=== PATIENT | male | born 1955 | race Asian ===

== ENCOUNTER 2020-07-03 08:00 | Outpatient (CLI) | payer MEDICARE, OTHER | END 2020-07-03 23:59 | disposition home or self-care (01) | LOC: LAB.R 08:00 | PROVIDERS: ATTEND Nurse Practitioner | DX: R05 Cough (principal); Z20.822 Contact with and (suspected) exposure to COVID-19 | CPT/HCPCS: 87275; 87276; U0004 ==

== ENCOUNTER 2020-07-03 11:04 | Outpatient (CLI) | payer MEDICARE, OTHER ==
--- NOTE | 2020-07-03 11:34 | XRAY Report ---
PROCEDURE: Chest 2 View X-Ray INDICATIONS: ACUTE URI TECHNIQUE: 2 views of the chest. COMPARISON: None. FINDINGS: Surgical changes and devices: None. Lungs and pleura: There are bilateral patchy groundglass opacities, right greater than left, with a peripheral and basilar predominance. No pleural effusions or pneumothorax. Mediastinum: Mediastinal contours are normal. Heart size is normal. Bones and chest wall: No suspicious bony abnormalities. Soft tissues appear unremarkable. IMPRESSION: 1. Bilateral ground glass opacities likely represent pneumonia given clinical history. The appearance is suggestive of atypical viral pneumonia such as from Covid. Reviewed by: Aristeo Chavez MD on 07/03/2020 11:33 AM [facility] [place] Approved by: Aristeo Chavez MD on 07/03/2020 11:33 AM [facility] [place] Station ID: [id number]
== END 2020-07-03 23:59 | disposition home or self-care (01) ==
LOC: DI.N 11:04
PROVIDERS: ATTEND Nurse Practitioner
DX: J06.9 Acute upper respiratory infection, unspecified (principal); R91.8 Other nonspecific abnormal finding of lung field

== ENCOUNTER 2020-07-03 11:58 | Inpatient (IN) | payer MEDICARE, OTHER ==
[2020-07-03 13:15] LABS: BASOPHILS % (AUTO) 0.2 %; EOSINOPHILS # (AUTO) 0.1 10^3/uL (0.0-0.7); EOSINOPHILS % (AUTO) 0.6 %; LYMPHOCYTES # (AUTO) 1.3 10^3/uL (1.5-3.5); LYMPHOCYTES % (AUTO) 16.6 %; MEAN CORPUSCULAR HEMOGLOBIN 30.2 pg (27.0-31.0); MEAN CORPUSCULAR HGB CONC 32.8 g/dL (32.0-36.0); MEAN CORPUSCULAR VOLUME 92.3 fL (80.0-94.0); MEAN PLATELET VOLUME 10.1 fL (7.4-11.4); MONOCYTES # (AUTO) 0.7 10^3/uL (0.0-1.0); MONOCYTES % (AUTO) 8.2 %; PLT - PLATELET COUNT 309 10^3/uL (130-450); RED BLOOD COUNT 4.96 10^6/uL (4.70-6.10); RED CELL DISTRIBUTION WIDTH 11.9 % (12.0-15.0); WHITE BLOOD COUNT 8.1 x10^3/uL (4.8-10.8)
--- NOTE | 2020-07-03 13:19 | ED Physician Documentation ---
History of Present Illness - Stated complaint Stated Complaint: COUGH/FATIGUE - Chief complaint Chief Complaint: Resp - History obtained from History obtained from: Patient - History of Present Illness Timing: How many weeks ago (1) Pain level max: 0 Pain level now: 0 - Additonal information Additional information: Patient is a 65-year-old male who presents to the emergency department with a cough for the past week. He was seen at the walk-in clinic today and stated that they told him to come here for evaluation. He does not know why they told him to come here. He states that they told him he possibly had Covid or pneumonia. No antibiotics given. Review of Systems Ten Systems: 10 systems reviewed and negative Constitutional: denies: Fever, Chills Nose: denies: Rhinorrhea / runny nose, Congestion Cardiac: denies: Palpitations Respiratory: reports: Cough (brown sputum) GI: denies: Abdominal Pain, Nausea, Vomiting, Diarrhea : denies: Dysuria Skin: denies: Rash Musculoskeletal: denies: Neck pain, Back pain Neurologic: denies: Headache PD PAST MEDICAL HISTORY - Past Medical History Past Medical History: Yes Endocrine/Autoimmune: Type 2 diabetes - Past Surgical History Cardiovascular: Coronary stent - Present Medications Home Medications: Ambulatory Orders Medication Instructions Recorded Confirmed Atorvastatin [Lipitor] 40 mg PO DAILY 07/03/20 07/03/20 Insulin Glargine [Lantus Solostar] 40 units SQ DAILY 07/03/20 07/03/20 Lisinopril [Zestril] 20 mg PO DAILY 07/03/20 07/03/20 Pioglitazone HCl [Actos] 30 mg PO DAILY 07/03/20 07/03/20 SITagliptin [Januvia] 100 mg PO DAILY 07/03/20 07/03/20 metFORMIN [Glucophage] 850 mg PO BID 07/03/20 07/03/20 - Allergies Allergies/Adverse Reactions: Allergies Allergy/AdvReac Type Severity Reaction Status Date / Time No Known Drug Allergies Allergy Verified 07/03/20 12:09 - Social History Does the pt smoke?: No Smoking Status: Never smoker Does the pt drink ETOH?: No Does the pt have substance abuse?: No - Immunizations Immunizations are current?: Yes - POLST Patient has POLST: No PD ED PE NORMAL - Vitals Vital signs reviewed: Yes - General General: Alert and oriented X 3, No acute distress - HEENT HEENT: Moist mucous membranes - Neck Neck: Supple, no meningeal sign - Cardiac Cardiac: RRR, Strong equal pulses - Respiratory Respiratory: No respiratory distress, Other (crackles B) - Abdomen Abdomen: Soft, Non tender, Non distended - Derm Derm: Warm and dry, No rash - Neuro Neuro: Alert and oriented X 3 - Psych Psych: Normal mood, Normal affect Results - Vitals Vitals: Vital Signs - 24 hr 07/03/20 07/03/20 07/03/20 12:05 12:40 13:30 Temperature 36.0 C L Heart Rate 112 H 105 H 96 Respiratory 24 15 21 Rate Blood Pressure 139/80 H 134/71 H 137/83 H O2 Saturation 90 L 93 95 07/03/20 07/03/20 07/03/20 14:13 14:30 15:00 Temperature Heart Rate 94 93 96 Respiratory 24 29 H 27 H Rate Blood Pressure 135/77 H 137/72 H 121/74 O2 Saturation 96 96 95 07/03/20 07/03/20 07/03/20 15:32 16:37 17:00 Temperature Heart Rate 99 94 99 Respiratory 16 18 17 Rate Blood Pressure 130/71 135/77 H 131/73 H O2 Saturation 96 96 96 Oxygen O2 Source Nasal cannula Oxygen Flow Rate 2 - Labs Labs: Laboratory Tests 07/03/20 07/03/20 07/03/20 12:30 12:30 12:30 WBC 8.1 RBC 4.96 Hgb 15.0 Hct 45.8 MCV 92.3 MCH 30.2 MCHC 32.8 RDW 11.9 L Plt Count 309 MPV 10.1 Neut # (Auto) 6.0 Lymph # (Auto) 1.3 L Love # (Auto) 0.7 Eos # (Auto) 0.1 Baso # (Auto) 0.0 Absolute Nucleated RBC 0.00 Nucleated RBC % 0.0 Manual Slide Review Indicated WBC Morphology NORMAL APPEARANCE Platelet Estimate NORMAL (130-450,000) Platelet Morphology NORMAL APPEARANCE ESR D-Dimer > 1050.0 H Sodium 137 Potassium 3.8 Chloride 98 L Carbon Dioxide 23 Anion Gap 16.0 H BUN 11 Creatinine 1.1 Estimated GFR (MDRD) 67 L Glucose 171 H Calcium 8.6 Ferritin Total Bilirubin 0.7 AST 53 H ALT 58 Alkaline Phosphatase 81 C-Reactive Protein Total Protein 7.5 Albumin 2.9 L Globulin 4.6 H Albumin/Globulin Ratio 0.6 L Nasal Adenovirus (PCR) Nasal B. parapertussis DNA (PCR) Nasal Coronavir 229E PCR Nasal Coronavir HKU1 PCR Nasal Coronavir NL63 PCR Nasal Coronavir OC43 PCR Nasal Enterovir/Rhinovir PCR Nasal Influenza B PCR Nasal Influenza A PCR Nasal Parainfluen 1 PCR Nasal Parainfluen 2 PCR Nasal Parainfluen 3 PCR Nasal Parainfluen 4 PCR Nasal RSV (PCR) Nasal B.pertussis DNA PCR Nasal C.pneumoniae (PCR) Feliberto Human Metapneumo PCR Nasal M.pneumoniae (PCR) Nasal SARS-CoV-2 (PCR) 07/03/20 07/03/20 07/03/20 12:30 12:30 13:27 WBC RBC Hgb Hct MCV MCH MCHC RDW Plt Count MPV Neut # (Auto) Lymph # (Auto) Love # (Auto) Eos # (Auto) Baso # (Auto) Absolute Nucleated RBC Nucleated RBC % Manual Slide Review WBC Morphology Platelet Estimate Platelet Morphology ESR D-Dimer Sodium Potassium Chloride Carbon Dioxide Anion Gap BUN Creatinine Estimated GFR (MDRD) Glucose Calcium Ferritin 410.0 H Total Bilirubin AST ALT Alkaline Phosphatase C-Reactive Protein 10.2 H Total Protein Albumin Globulin Albumin/Globulin Ratio Nasal Adenovirus (PCR) NOT DETECTED Nasal B. parapertussis DNA (PCR) NOT DETECTED Nasal Coronavir 229E PCR NOT DETECTED Nasal Coronavir HKU1 PCR NOT DETECTED Nasal Coronavir NL63 PCR NOT DETECTED Nasal Coronavir OC43 PCR NOT DETECTED Nasal Enterovir/Rhinovir PCR NOT DETECTED Nasal Influenza B PCR NOT DETECTED Nasal Influenza A PCR NOT DETECTED Nasal Parainfluen 1 PCR NOT DETECTED Nasal Parainfluen 2 PCR NOT DETECTED Nasal Parainfluen 3 PCR NOT DETECTED Nasal Parainfluen 4 PCR NOT DETECTED Nasal RSV (PCR) NOT DETECTED Nasal B.pertussis DNA PCR NOT DETECTED Nasal C.pneumoniae (PCR) NOT DETECTED Feliberto Human Metapneumo PCR NOT DETECTED Nasal M.pneumoniae (PCR) NOT DETECTED Nasal SARS-CoV-2 (PCR) DETECTED A 07/03/20 14:30 WBC RBC Hgb Hct MCV MCH MCHC RDW Plt Count MPV Neut # (Auto) Lymph # (Auto) Love # (Auto) Eos # (Auto) Baso # (Auto) Absolute Nucleated RBC Nucleated RBC % Manual Slide Review WBC Morphology Platelet Estimate Platelet Morphology ESR 76 H D-Dimer Sodium Potassium Chloride Carbon Dioxide Anion Gap BUN Creatinine Estimated GFR (MDRD) Glucose Calcium Ferritin Total Bilirubin AST ALT Alkaline Phosphatase C-Reactive Protein Total Protein Albumin Globulin Albumin/Globulin Ratio Nasal Adenovirus (PCR) Nasal B. parapertussis DNA (PCR) Nasal Coronavir 229E PCR Nasal Coronavir HKU1 PCR Nasal Coronavir NL63 PCR Nasal Coronavir OC43 PCR Nasal Enterovir/Rhinovir PCR Nasal Influenza B PCR Nasal Influenza A PCR Nasal Parainfluen 1 PCR Nasal Parainfluen 2 PCR Nasal Parainfluen 3 PCR Nasal Parainfluen 4 PCR Nasal RSV (PCR) Nasal B.pertussis DNA PCR Nasal C.pneumoniae (PCR) Feliberto Human Metapneumo PCR Nasal M.pneumoniae (PCR) Nasal SARS-CoV-2 (PCR) PD MEDICAL DECISION MAKING - ED course Complexity details: reviewed results, re-evaluated patient, considered differential, d/w patient ED course: 65-year-old male presents to the emergency department with what appears to be Covid pneumonia. He is hypoxic with movement in bed, drops to 88%, drops down to 86 with ambulation. Will require supplemental oxygen. Given 6 mg of Decadron in the emergency department. We will admit for further care. Discussed with Dr. Booker, hospitalist who accepts. Chest xray: 1. Bilateral ground glass opacities likely represent pneumonia given clinical history. The appearance is suggestive of atypical viral pneumonia such as from Covid. Departure - Departure Disposition: 64 [facility] DC/Xfer Clinical Impression: COVID-19, Hypoxia, Pneumonia due to COVID-19 virus Condition: Stable Discharge Date/Time: 07/03/20 19:18
[2020-07-03 13:23] LABS: ALBUMIN 2.9 g/dL (3.2-5.5); ALBUMIN/GLOBULIN RATIO 0.6 (1.0-2.2); BILIRUBIN,TOTAL 0.7 mg/dL (0.2-1.0); CALCIUM 8.6 mg/dL (8.5-10.3); CREATININE 1.1 mg/dL (0.6-1.2); TOTAL PROTEIN 7.5 g/dL (6.7-8.2)
[2020-07-03 14:13] LABS: PLATELET ESTIMATE, MANUAL NORMAL (130-450,000) (NORMAL); PLATELET MORPHOLOGY NORMAL APPEARANCE (NORMAL)
[2020-07-03 15:21] LABS: C. PNEUMONIAE- RESP PCR PANEL NOT DETECTED
[2020-07-03] MEDS ORDERED: SODIUM CHLORIDE 0.9% 1,000 ML IV STA (15:36)
[2020-07-03] MEDS ORDERED: DEXAMETHASONE 10 MG/ML VIAL IVP STA (15:38)
[2020-07-03] MEDS ORDERED: SODIUM CHLORIDE FLUSH 0.9% 10 ML SYRINGE IVP PRN (17:16)
[2020-07-03] MEDS ORDERED: ONDANSETRON 4 MG/2 ML VIAL IVP PRN (17:16)
[2020-07-03] MEDS ORDERED: ACETAMINOPHEN 325 MG TABLET PO PRN (17:16)
--- NOTE | 2020-07-03 17:25 | HISTORY & PHYSICAL EXAMINATION ---
Chief Complaint - Chief Complaint Chief Complaint: shortness of breath History of Present Illness - Admitted From Admitted From:: ER - History Obtained From Records Reviewed: [facility] History obtained from: Pt Exam Limitations: no - History of Present Illness HPI Comment/Other: Patient is a 65-year-old male With a past medical history significant for hypertension, hyperlipidemia, diabetes, who presents to the emergency department with a cough and shortness of breath. pt report he had several weeks for shortness of breath with cough. But now Pt had obviously increased shortness of breath with exertion. He was seen at the walk-in clinic today and stated that he was told to come ER for further evaluation. He states that they told him he possibly had Covid pneumonia. 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 PCR test did show positive for COVID-19. Patient's O2 saturation is fine when he is in the rest. He is hypoxic with exertion in bed, drops to 88% sats, and drops more down to 86% with ambulation. Patient present significantly dry cough. pt require supplemental oxygen now. Patient denying fever, chest pain. Pt was Given 6 mg of Decadron in the emergency department. Given above medical condition, medical team was consulted for admission. Discussed the care goal with the patient, patient request full History - Past Medical History Endocrine/Autoimmune: reports: Type 2 diabetes MRSA Hx?: No - Past Surgical History Cardiovascular: reports: Coronary stent - Family & Social History Family History: Mother: , Father: Family History Comment/Other: Patient reported his father at age 62 from stroke. Her mother a From diabetic complication with stroke at the age 84. Social History Notes: Patient denies any history of cigarette smoking, alcohol or drug issue. He was moved from [facility] in May. - POLST Patient has POLST: No Meds/Allgy - Home Medications Home Medications: Ambulatory Orders Medication Instructions Recorded Confirmed Atorvastatin [Lipitor] 40 mg PO DAILY 07/03/20 07/03/20 Insulin Glargine [Lantus Solostar] 40 units SQ DAILY 07/03/20 07/03/20 Lisinopril [Zestril] 20 mg PO DAILY 07/03/20 07/03/20 Pioglitazone HCl [Actos] 30 mg PO DAILY 07/03/20 07/03/20 SITagliptin [Januvia] 100 mg PO DAILY 07/03/20 07/03/20 metFORMIN [Glucophage] 850 mg PO BID 07/03/20 07/03/20 - Allergies Allergies/Adverse Reactions: Allergies Allergy/AdvReac Type Severity Reaction Status Date / Time No Known Drug Allergies Allergy Verified 07/03/20 12:09 Review of Systems - Constitutional Constitutional: reports: Weakness. denies: Fever, Chills, Poor appetite, Diaphoresis - Eyes Eyes: denies: Pain, Blurred vision, Field loss, Vision loss - Ears, Nose & Throat Ears, Nose & Throat: denies: Ear pain, Vertigo, Nosebleeds, Bleeding gums - Cardiovascular Cariovascular: reports: Exertional dyspnea, Decr. exercise tolerance. denies: Irregular heart rate, Palpitations, Chest pain, Edema, Lightheadedness, Syncope - Respiratory Respiratory: reports: Cough, SOB with exertion. denies: Sputum production, Wheezing, Snoring, Hemoptysis, Orthopnea, SOB at rest - Gastrointestinal Gastrointestinal: denies: Abdominal pain, Constipation, Diarrhea, Rectal bleeding, Black stools, Bloody stools, Nausea, Vomiting - Genitourinary Genitourinary: denies: Dysuria, Urgency - Musculoskeletal Musculoskeletal: denies: Muscle pain, Muscle aches, Limited range of motion - Integumentary Integumentary: denies: Rash, Lesions, Lumps - Neurological Neurological: denies: General weakness, Focal weakness, Headache, Dizziness, Numbness, Memory problems, Pre-existing deficit, Abnormal gait, Seizures, Incoordination, Slurred speech - Psychiatric Psychiatric: denies: Depression, Anxiety - Endocrine Endocrine: denies: Polyuria, Polyphagia - Hematologic/Lymphatic Hematologic/Lymphatic: denies: Anemia, Petechiae, Blood clots Prior Level of Functionality: Patient is independent At home Exam - Vital Signs Vital Signs: Vital Signs x48h Temp Pulse Resp BP Pulse Ox 07/03/20 17:00 99 17 131/73 H 96 07/03/20 16:37 94 18 135/77 H 96 07/03/20 15:32 99 16 130/71 96 07/03/20 15:00 96 27 H 121/74 95 07/03/20 14:30 93 29 H 137/72 H 96 07/03/20 14:13 94 24 135/77 H 96 07/03/20 13:30 96 21 137/83 H 95 07/03/20 12:40 105 H 15 134/71 H 93 07/03/20 12:05 36.0 C L 112 H 24 139/80 H 90 L - Physical Exam General Appearance: positive: No acute distress, Alert. negative: Lethargic Eyes Bilateral: positive: Normal inspection, PERRL, No lid inflammation ENT: positive: ENT inspection nml, No signs of dehydration. negative: Purulent nasal drainage Neck: positive: Nml inspection, Trachea midline. negative: Thyromegaly, Tracheal deviation Respiratory: positive: Chest non-tender, No respiratory distress, Rhonchi. nega tive: Wheezes, Rales Cardiovascular: positive: Regular rate & rhythm, No murmur. negative: Tachycardia, Bradycardia, Systolic murmur, Diastolic murmur Peripheral Pulses: positive: 2+ Abdomen: positive: Non-tender, Nml bowel sounds. negative: Tenderness, Guarding, Rebound Back: positive: Nml inspection Skin: positive: Color nml, Warm, Dry. negative: Cyanosis, Pallor Extremities: positive: Non-tender, Full ROM, Nml appearance. negative: Calf te nderness Neurologic/Psychiatric: positive: Oriented x3, Motor nml, Sensation nml, Mood/affect nml. negative: Weakness, Sensory loss, Facial droop, Slurred/abnml speech, Depressed mood/affect Sepsis Event Note (H) - Evaluation Current Stage of Sepsis: Ruled out Conclusion/Plan - Problem List (1) Pneumonia due to COVID-19 virus Conclusion/Plan: Patient presents with cough, short of breathing on exertion, Chest x-ray will show Atopic ground glass pneumonia suggestion virus pneumonia, PCR test show COVID-19. Consult with pharmacy, will give patient Remdisvir, continue Decadron, will give patient Lovenox For DVT prophylaxis. Supplemental oxygen As needed. Intravenous IV fluids. Continue vital signs and laboratory supervisor. (2) Hypoxia Conclusion/Plan: Patient show O2 sat dropped to 86% in exertion. Patient COVID-19 positive. We will supplement oxygen for patient, continue treat COVID-19. Continue vital signs monitor (3) Diabetes Conclusion/Plan: Patient has history diabetes. We will start Sliding-scale, check glucose, start hypoglycemia Protocol, Check A1c (4) HTN (hypertension) Conclusion/Plan: Patient blood pressure is stable now, we will resume patient home blood pressure medication after confirmed (5) HLD (hyperlipidemia) Conclusion/Plan: Will resume patient home hyperlipidemia medication After confirmed Per pharmacy - Lab Results Fish Bones: 07/03/20 12:30 07/03/20 12:30 Core Measures - Anticipated LOS I expect patient to be DC'd or transferred within 96 hours.: Yes - DVT/VTE - Prophylaxis VTE/DVT Device ordered at admit?: Yes VTE/DVT Prophylaxis med ordered at admit?: Yes
[2020-07-03] MEDS ORDERED: REMDESIVIR 100MG VIAL 200 MG in SODIUM CHLORIDE 0.9% 250 ML IV ONE (18:00)
[2020-07-03] MEDS: SODIUM CHLORIDE 0.9% 1,000 ML IV SCH (19:40)
[2020-07-03] MEDS ORDERED: INSULIN GLARGINE 300 UNIT/3 ML PEN SUBQ SCH (21:00)
[2020-07-03] MEDS: ATORVASTATIN 40 MG TABLET PO SCH (22:59)
[2020-07-03] MEDS: INSULIN ASPART 300 UNIT/3 ML PEN SUBQ SCH (23:00)
[2020-07-04] MEDS: SODIUM CHLORIDE FLUSH 0.9% 10 ML SYRINGE IVP SCH ×3 (01:05→16:48)
[2020-07-04] MEDS: SODIUM CHLORIDE 0.9% 1,000 ML IV SCH (01:34)
[2020-07-04 05:21] LABS: BASOPHILS % (AUTO) 0.2 %; HGB - HEMOGLOBIN 13.3 g/dL (14.0-18.0); LYMPHOCYTES % (AUTO) 21.6 %; MEAN CORPUSCULAR HEMOGLOBIN 30.6 pg (27.0-31.0); MEAN CORPUSCULAR HGB CONC 32.4 g/dL (32.0-36.0); MEAN CORPUSCULAR VOLUME 94.5 fL (80.0-94.0); MEAN PLATELET VOLUME 10.2 fL (7.4-11.4); MONOCYTES % (AUTO) 7.3 %; NEUTROPHILS % (AUTO) 70.5 %; PLT - PLATELET COUNT 255 10^3/uL (130-450); RED BLOOD COUNT 4.35 10^6/uL (4.70-6.10); RED CELL DISTRIBUTION WIDTH 11.7 % (12.0-15.0); WHITE BLOOD COUNT 4.8 x10^3/uL (4.8-10.8)
[2020-07-04 05:29] LABS: ABNORMAL LYMPHS % (MANUAL) 0 %
[2020-07-04 05:43] LABS: CALCIUM 7.7 mg/dL (8.5-10.3); CREATININE 0.9 mg/dL (0.6-1.2); CRP - C-REACTIVE PROTEIN 10.9 mg/dL (0-1.0)
[2020-07-04] MEDS: PANTOPRAZOLE 40 MG TABLET PO SCH (06:39)
[2020-07-04 06:59] LABS: BAND NEUTROPHILS % (MANUAL) 1 %; LYMPHOCYTES % (MANUAL) 21 %; MONOCYTES # (MANUAL) 0.6 10^3/uL (0.0-1.0)
[2020-07-04 07:00] LABS: DIFFERENTIAL COMMENT MANUAL DIFFERENTIAL; PLATELET ESTIMATE, MANUAL NORMAL (130-450,000) (NORMAL); PLATELET MORPHOLOGY NORMAL APPEARANCE (NORMAL); RBC MORPHOLOGY (MULTIPLE) NORMAL APPEARANCE (NORMAL)
[2020-07-04] MEDS ORDERED: DEXAMETHASONE 10 MG/ML VIAL IVP SCH (09:00)
[2020-07-04] MEDS: INSULIN ASPART 300 UNIT/3 ML PEN SUBQ SCH ×4 (09:04→20:43)
[2020-07-04] MEDS: ENOXAPARIN 40 MG/0.4 ML SYRINGE SUBQ SCH (09:07)
[2020-07-04] MEDS: DEXAMETHASONE 10 MG/ML VIAL IVP SCH (09:09)
[2020-07-04] MEDS: REMDESIVIR 100MG VIAL 100 MG in SODIUM CHLORIDE 0.9% 100ML 100 ML IV SCH (09:13)
[2020-07-04] MEDS: BENZOCAINE/MENTHOL LOZENGE MM PRN ×2 (10:03→12:10)
[2020-07-04] MEDS: PHENOL THROAT SPRAY 177 ML MM PRN (10:03)
--- NOTE | 2020-07-04 10:57 | PROVIDER PROGRESS NOTE ---
Assessment/Plan - Problem List (1) Pneumonia due to COVID-19 virus Assessment/Plan: Patient has a persistent dry cough but is maintaining his oxygenation on 1 L of oxygen via nasal cannula. We will continue remdesivir. Today is day 2 . Continue Decadron 6 mg IV daily Albuterol inhaler 2 puffs every 4 hours as needed. Lovenox 40 mg subcu every afternoon for DVT prophylaxis. (2) Hypoxia Assessment/Plan: Secondary to COVID-19 infection/pneumonia. Patient has a persistent dry cough but is maintaining his oxygenation above 94% on 1 L of oxygen via nasal cannula. We will continue remdesivir. Today is day 2 5. Continue Decadron 6 mg IV daily Albuterol inhaler 2 puffs every 4 hours as needed. (3) Diabetes Qualifiers: Diabetes mellitus type: type 2 Assessment/Plan: Carb controlled diet. Patient's Actos, Januvia and Metformin held. Continue Lantus 40 units subcu daily. Accu-Cheks before every meal and at bedtime. Sliding scale insulin. Hemoglobin A1c 7.5. (4) HLD (hyperlipidemia) Assessment/Plan: On atorvastatin 40 mg p.o. every afternoon. (5) HTN (hypertension) Assessment/Plan: Currently normotensive. On lisinopril 20 mg p.o. daily. - Current Meds Current Meds: Current Medications Generic Name Dose Route Start Last Admin Trade Name Freq PRN Reason Stop Dose Admin Atorvastatin Calcium 40 mg 07/03/20 21:00 07/03/20 22:59 Atorvastatin 40 Mg Tablet PO 40 mg QPM CHRISTIE Administration Dexamethasone 6 mg 07/04/20 09:00 07/04/20 09:09 Dexamethasone 10 Mg/Ml Vial IVP 07/08/20 08:59 6 mg DAILY CHRISTIE Administration Enoxaparin Sodium 40 mg 07/04/20 09:00 07/04/20 09:07 Enoxaparin 40 Mg/0.4 Ml Syringe SUBQ 40 mg DAILY CHRISTIE Administration Sodium Chloride 1,000 mls @ 100 mls/hr 07/03/20 18:00 07/04/20 01:34 Normal Saline 0.9% IV 07/04/20 13:59 100 mls/hr .Q10H CHRISTIE Administration Remdesivir 100 mg/ Sodium 100 mls @ 200 mls/hr 07/04/20 09:00 07/04/20 09:13 Chloride IV 07/07/20 09:29 200 mls/hr DAILY CHRISTIE Administration Insulin Aspart 1 - 9 unit 07/03/20 21:00 07/04/20 09:04 Insulin Aspart 300 Unit/3 Ml Pen SUBQ 1 unit 0800,1200,1700,2100 CHRISTIE Administration Protocol Insulin Glargine 15 unit 07/03/20 21:00 07/03/20 22:59 Insulin Glargine 300 Unit/3 Ml Pen SUBQ 15 unit QPM CHRISTIE Administration Pantoprazole Sodium 40 mg 07/04/20 07:00 07/04/20 06:39 Pantoprazole 40 Mg Tablet PO 40 mg QDAC CHRISTIE Administration Phenol/Menthol 2 sprays 07/04/20 09:40 07/04/20 10:03 Phenol Throat [place] 177 Ml MM 2 sprays Q2HR PRN Administration Throat Pain Sodium Chloride 10 ml 07/04/20 01:00 07/04/20 09:14 Sodium Chloride Flush 0.9% 10 Ml Syringe IVP Not Given 0100,0900,1700 [facility], [facility]–1983 Throat Lozenges 1 lozenge 07/04/20 09:40 07/04/20 10:03 Benzocaine/Menthol Lozenge MM 1 lozenge Q2HR PRN Administration Throat pain - Lab Result Fish Bone Diagrams: 07/04/20 04:16 07/04/20 04:16 Subjective - Subjective Patient Reports: Other (Patient was resting comfortably at time of exam. He had a persistent dry cough during the course of the visit. He denied feeling dyspneic. He is on 1 L of oxygen via nasal cannula. He denied chest pain, abdominal pain, fever or chills.) Objective Vital Signs: Vital Signs - 24 hr 07/03/20 07/03/20 07/03/20 12:05 12:40 13:30 Temperature 36.0 C L Heart Rate 112 H 105 H 96 Heart Rate [ Brachial] Respiratory 24 15 21 Rate Blood Pressure 139/80 H 134/71 H 137/83 H Blood Pressure [Left Brachial artery] Blood Pressure [Right Brachial artery] O2 Saturation 90 L 93 95 07/03/20 07/03/20 07/03/20 14:13 14:30 15:00 Temperature Heart Rate 94 93 96 Heart Rate [ Brachial] Respiratory 24 29 H 27 H Rate Blood Pressure 135/77 H 137/72 H 121/74 Blood Pressure [Left Brachial artery] Blood Pressure [Right Brachial artery] O2 Saturation 96 96 95 07/03/20 07/03/20 07/03/20 15:32 16:37 17:00 Temperature Heart Rate 99 94 99 Heart Rate [ Brachial] Respiratory 16 18 17 Rate Blood Pressure 130/71 135/77 H 131/73 H Blood Pressure [Left Brachial artery] Blood Pressure [Right Brachial artery] O2 Saturation 96 96 96 07/03/20 07/03/20 07/03/20 17:30 18:00 19:00 Temperature 37.5 C Heart Rate 76 75 71 Heart Rate [ Brachial] Respiratory 24 26 H 20 Rate Blood Pressure 144/74 H 145/76 H 109/73 Blood Pressure [Left Brachial artery] Blood Pressure [Right Brachial artery] O2 Saturation 97 96 97 07/03/20 07/04/20 07/04/20 19:50 00:13 05:00 Temperature 37.1 C 36.8 C 36.7 C Heart Rate Heart Rate [ 75 78 29 L Brachial] Respiratory 22 20 18 Rate Blood Pressure Blood Pressure 141/72 H 126/65 [Left Brachial artery] Blood Pressure 127/69 [Right Brachial artery] O2 Saturation 98 95 95 07/04/20 07:54 Temperature 36.7 C Heart Rate Heart Rate [ 60 Brachial] Respiratory 18 Rate Blood Pressure Blood Pressure 117/68 [Left Brachial artery] Blood Pressure [Right Brachial artery] O2 Saturation 96 Oxygen O2 Source Nasal cannula Oxygen Flow Rate 2 I&O (Last 24 Hrs): Intake and Output Totals x24h 07/02/20 07/03/20 07/04/20 23:59 23:59 23:59 Intake Total 935 478.333 Output Total 600 Balance 935 -121.667 General: Alert, Oriented x3, Mild distress HEENT: Atraumatic, PERRLA, EOMI Neck: Supple, No JVD Neuro: Alert, Oriented Times 3 Cardiovascular: Regular rate, Normal S1, Normal S2 Respiratory: Other (Moderate crackles heard on the right side of her lungs.) Abdomen: Normal bowel sounds, Soft, No tenderness Extremities: No clubbing, No cyanosis, No edema Skin: No rashes - Results Results: Laboratory Results WBC 4.8 x10^3/uL (4.8-10.8) 07/04/20 04:16 RBC 4.35 10^6/uL (4.70-6.10) L 07/04/20 04:16 Hgb 13.3 g/dL (14.0-18.0) L 07/04/20 04:16 Hct 41.1 % (42.0-52.0) L 07/04/20 04:16 MCV 94.5 fL (80.0-94.0) H 07/04/20 04:16 MCH 30.6 pg (27.0-31.0) 07/04/20 04:16 MCHC 32.4 g/dL (32.0-36.0) 07/04/20 04:16 RDW 11.7 % (12.0-15.0) L 07/04/20 04:16 Plt Count 255 10^3/uL (130-450) 07/04/20 04:16 MPV 10.2 fL (7.4-11.4) 07/04/20 04:16 Neut # (Auto) Not Reportable 07/04/20 04:16 Lymph # (Auto) Not Reportable 07/04/20 04:16 [place] # (Auto) Not Reportable 07/04/20 04:16 Eos # (Auto) Not Reportable 07/04/20 04:16 Baso # (Auto) Not Reportable 07/04/20 04:16 Absolute Nucleated RBC Not Reportable 07/04/20 04:16 Total Counted 100 07/04/20 04:16 Band Neuts % (Manual) 1 % (0-10) 07/04/20 04:16 Abnorm Lymph % (Manual) 0 % 07/04/20 04:16 Nucleated RBC % Not Reportable 07/04/20 04:16 Neutrophils # (Manual) 3.2 10^3/uL (1.5-6.6) 07/04/20 04:16 Lymphocytes # (Manual) 1.0 10^3/uL (1.5-3.5) L 07/04/20 04:16 Monocytes # (Manual) 0.6 10^3/uL (0.0-1.0) 07/04/20 04:16 Eosinophils # (Manual) 0.0 10^3/uL (0-0.7) 07/04/20 04:16 Basophils # (Manual) 0.0 10^3/uL (0-0.1) 07/04/20 04:16 Differential Comment MANUAL DIFFERENTIAL 07/04/20 04:16 Manual Slide Review Indicated 07/03/20 12:30 WBC Morphology NORMAL APPEARANCE (NORMAL) 07/04/20 04:16 Platelet Estimate NORMAL (130-450,000) (NORMAL) 07/04/20 04:16 Platelet Morphology NORMAL APPEARANCE (NORMAL) 07/04/20 04:16 RBC Morph Micro Appear NORMAL APPEARANCE (NORMAL) 07/04/20 04:16 ESR 76 mm/Hr (0-20) H 07/03/20 14:30 D-Dimer > 1050.0 ng/mL (200.0-255.0) H 07/03/20 12:30 Sodium 138 mmol/L (135-145) 07/04/20 04:16 Potassium 4.6 mmol/L (3.5-5.0) 07/04/20 04:16 Chloride 106 mmol/L (101-111) 07/04/20 04:16 Carbon Dioxide 23 mmol/L (21-32) 07/04/20 04:16 Anion Gap 9.0 (6-13) 07/04/20 04:16 BUN 14 mg/dL (6-20) 07/04/20 04:16 Creatinine 0.9 mg/dL (0.6-1.2) 07/04/20 04:16 Estimated GFR (MDRD) 84 (>89) L 07/04/20 04:16 Glucose 185 mg/dL (70-100) H 07/04/20 04:16 Calcium 7.7 mg/dL (8.5-10.3) L 07/04/20 04:16 Ferritin 410.0 ng/mL (23.9-336.2) H 07/03/20 12:30 Total Bilirubin 0.7 mg/dL (0.2-1.0) 07/03/20 12:30 AST 53 IU/L (10-42) H 07/03/20 12:30 ALT 58 IU/L (10-60) 07/03/20 12:30 Alkaline Phosphatase 81 IU/L (42-121) 07/03/20 12:30 C-Reactive Protein 10.9 mg/dL (0-1.0) H 07/04/20 04:16 Total Protein 7.5 g/dL (6.7-8.2) 07/03/20 12:30 Albumin 2.9 g/dL (3.2-5.5) L 07/03/20 12:30 Globulin 4.6 g/dL (2.1-4.2) H 07/03/20 12:30 Albumin/Globulin Ratio 0.6 (1.0-2.2) L 07/03/20 12:30 Nasal Adenovirus (PCR) NOT DETECTED 07/03/20 13:27 Nasal B. parapertussis DNA (PCR) NOT DETECTED 07/03/20 13:27 Nasal Coronavir 229E PCR NOT DETECTED 07/03/20 13:27 Nasal Coronavir HKU1 PCR NOT DETECTED 07/03/20 13:27 Nasal Coronavir NL63 PCR NOT DETECTED 07/03/20 13:27 Nasal Coronavir OC43 PCR NOT DETECTED 07/03/20 13:27 Nasal Enterovir/Rhinovir PCR NOT DETECTED 07/03/20 13:27 Nasal Influenza B PCR NOT DETECTED 07/03/20 13:27 Nasal Influenza A PCR NOT DETECTED 07/03/20 13:27 Nasal Parainfluen 1 PCR NOT DETECTED 07/03/20 13:27 Nasal Parainfluen 2 PCR NOT DETECTED 07/03/20 13:27 Nasal Parainfluen 3 PCR NOT DETECTED 07/03/20 13:27 Nasal Parainfluen 4 PCR NOT DETECTED 07/03/20 13:27 Nasal RSV (PCR) NOT DETECTED 07/03/20 13:27 Nasal B.pertussis DNA PCR NOT DETECTED 07/03/20 13:27 Nasal C.pneumoniae (PCR) NOT DETECTED 07/03/20 13:27 Feliberto Human Metapneumo PCR NOT DETECTED 07/03/20 13:27 Nasal M.pneumoniae (PCR) NOT DETECTED 07/03/20 13:27 Nasal SARS-CoV-2 (PCR) DETECTED A 07/03/20 13:27 Sepsis Event Note (H) - Evaluation Current Stage of Sepsis: Ruled out
[2020-07-04 11:46] LABS: HEMOGLOBIN A1c% 7.5 % (4.27-6.07)
--- NOTE | 2020-07-04 12:21 | PHARMACY PROGRESS NOTE ---
- Best Possible Medication History Admit Date and Time: 07/03/20 1716 Processed by: Nursing Medication History completed: Yes As the person ultimately responsible for medication therapy, providers are able to order a medication from an existing home medication list in [facility] via the "Reconcile Routine" prior to Confirmation of that medication by supportability engineer. Such practice is discouraged except when the physician, in their clinical judgment, deems that a medical need exists for a medication without regard to previous use.
[2020-07-04] MEDS ORDERED: ALBUTEROL 1 PUFF INH PRN (13:09)
[2020-07-04] MEDS: guaiFENesin 600 MG TABLET PO SCH ×2 (13:20→20:45)
[2020-07-04] MEDS: INSULIN GLARGINE 300 UNIT/3 ML PEN SUBQ SCH (20:44)
[2020-07-04] MEDS: ATORVASTATIN 40 MG TABLET PO SCH (20:45)
[2020-07-05] MEDS: SODIUM CHLORIDE FLUSH 0.9% 10 ML SYRINGE IVP SCH ×3 (01:19→16:46)
[2020-07-05 05:31] LABS: BASOPHILS % (AUTO) 0.2 %; HGB - HEMOGLOBIN 12.8 g/dL (14.0-18.0); LYMPHOCYTES # (AUTO) 1.8 10^3/uL (1.5-3.5); LYMPHOCYTES % (AUTO) 17.8 %; MEAN CORPUSCULAR HEMOGLOBIN 30.3 pg (27.0-31.0); MEAN CORPUSCULAR HGB CONC 32.2 g/dL (32.0-36.0); MEAN CORPUSCULAR VOLUME 94.1 fL (80.0-94.0); MEAN PLATELET VOLUME 10.3 fL (7.4-11.4); MONOCYTES # (AUTO) 0.8 10^3/uL (0.0-1.0); MONOCYTES % (AUTO) 8.2 %; NEUTROPHILS # (AUTO) 7.5 10^3/uL (1.5-6.6); NEUTROPHILS % (AUTO) 73.1 %; PLT - PLATELET COUNT 294 10^3/uL (130-450); RED BLOOD COUNT 4.23 10^6/uL (4.70-6.10); RED CELL DISTRIBUTION WIDTH 11.7 % (12.0-15.0); WHITE BLOOD COUNT 10.2 x10^3/uL (4.8-10.8)
[2020-07-05 05:50] LABS: CALCIUM 8.5 mg/dL (8.5-10.3); CRP - C-REACTIVE PROTEIN 5.8 mg/dL (0-1.0)
[2020-07-05] MEDS: PANTOPRAZOLE 40 MG TABLET PO SCH (06:55)
[2020-07-05] MEDS: INSULIN ASPART 300 UNIT/3 ML PEN SUBQ SCH ×4 (07:28→21:18)
[2020-07-05] MEDS: DEXAMETHASONE 10 MG/ML VIAL IVP SCH (09:32)
[2020-07-05] MEDS: ENOXAPARIN 40 MG/0.4 ML SYRINGE SUBQ SCH (09:32)
[2020-07-05] MEDS: lisinopriL 20 MG TABLET PO SCH (09:35)
[2020-07-05] MEDS: guaiFENesin 600 MG TABLET PO SCH (09:35)
[2020-07-05] MEDS: REMDESIVIR 100MG VIAL 100 MG in SODIUM CHLORIDE 0.9% 100ML 100 ML IV SCH (09:36)
--- NOTE | 2020-07-05 11:58 | PROVIDER PROGRESS NOTE ---
Assessment/Plan - Problem List (1) Pneumonia due to COVID-19 virus Assessment/Plan: Patient has a persistent dry cough but is maintaining his oxygenation on 1 L of oxygen via nasal cannula. We will continue remdesivir. Today is day 3 of 5. Continue Decadron 6 mg IV daily Albuterol inhaler 2 puffs every 4 hours as needed. Lovenox 40 mg subcu every afternoon for DVT prophylaxis. (2) Hypoxia Assessment/Plan: Secondary to COVID-19 infection/pneumonia. Patient has a persistent dry cough but is maintaining his oxygenation above 94% on 1 L of oxygen via nasal cannula. We will continue remdesivir. Today is day 3 of 5. Continue Decadron 6 mg IV daily Albuterol inhaler 2 puffs every 4 hours as needed. (3) Diabetes Qualifiers: Diabetes mellitus type: type 2 Assessment/Plan: Carb controlled diet. Patient's Actos, Januvia and Metformin held. Continue Lantus 40 units subcu daily. Accu-Cheks before every meal and at bedtime. Sliding scale insulin. Hemoglobin A1c 7.5. (4) HLD (hyperlipidemia) Assessment/Plan: On atorvastatin 40 mg p.o. every afternoon. (5) HTN (hypertension) Assessment/Plan: Currently normotensive. On lisinopril 20 mg p.o. daily. - Current Meds Current Meds: Current Medications Generic Name Dose Route Start Last Admin Trade Name Freq PRN Reason Stop Dose Admin Albuterol 2 puffs 07/04/20 13:09 07/04/20 13:52 Albuterol 1 Puff INH 2 puffs Q4H PRN Administration Dyspnea Atorvastatin Calcium 40 mg 07/03/20 21:00 07/04/20 20:45 Atorvastatin 40 Mg Tablet PO 40 mg QPM CHRISTIE Administration Dexamethasone 6 mg 07/04/20 09:00 07/05/20 09:32 Dexamethasone 10 Mg/Ml Vial IVP 07/08/20 08:59 6 mg DAILY CHRISTIE Administration Enoxaparin Sodium 40 mg 07/04/20 09:00 07/05/20 09:32 Enoxaparin 40 Mg/0.4 Ml Syringe SUBQ 40 mg DAILY CHRISTIE Administration Guaifenesin 600 mg 07/04/20 13:30 07/05/20 09:35 Guaifenesin 600 Mg Tablet PO 600 mg BID CHRISTIE Administration Remdesivir 100 mg/ Sodium 100 mls @ 200 mls/hr 07/04/20 09:00 07/05/20 10:10 Chloride IV 07/07/20 09:29 Infused DAILY [facility] Infusion Insulin Aspart 1 - 9 unit 07/03/20 21:00 07/05/20 07:28 Insulin Aspart 300 Unit/3 Ml Pen SUBQ Not Given 0800,1200,1700,2100 [facility] Protocol Insulin Glargine 40 unit 07/04/20 21:00 07/04/20 20:44 Insulin Glargine 300 Unit/3 Ml Pen SUBQ 40 unit QPM CHRISTIE Administration Lisinopril 20 mg 07/05/20 09:00 07/05/20 09:35 Lisinopril 20 Mg Tablet PO 20 mg DAILY CHRISTIE Administration Pantoprazole Sodium 40 mg 07/04/20 07:00 07/05/20 06:55 Pantoprazole 40 Mg Tablet PO 40 mg QDAC CHRISTIE Administration Phenol/Menthol 2 sprays 07/04/20 09:40 07/04/20 10:03 Phenol Throat [place] 177 Ml MM 2 sprays Q2HR PRN Administration Throat Pain Sodium Chloride 10 ml 07/04/20 01:00 07/05/20 10:19 Sodium Chloride Flush 0.9% 10 Ml Syringe IVP 10 ml 0100,0900,1700 CHRISTIE Administration Throat Lozenges 1 lozenge 07/04/20 09:40 07/04/20 12:10 Benzocaine/Menthol Lozenge MM 1 lozenge Q2HR PRN Administration Throat pain - Lab Result Fish Bone Diagrams: 07/06/20 05:53 07/06/20 05:53 - Additional Planning My Orders: My Active Orders 07/04/20 13:09 Mdi: Albuterol 2 puffs INH Q4H PRN 07/04/20 13:10 Nebulizer/MDI Tx. [RC] .Q4PRN Resp Teach Nebulizer/MDI [RC] .ONCE 07/04/20 13:30 guaiFENesin [Mucinex] 600 mg PO BID 07/04/20 21:00 Insulin Glargine [Lantus Solostar] 40 unit SUBQ QPM 07/05/20 09:00 lisinopriL [Zestril] 20 mg PO DAILY Subjective - Subjective Patient Reports: Other (Patient is resting comfortably. His dry nonproductive cough persist but has decreased in intensity. He denies any other complaints.) Objective Vital Signs: Vital Signs - 24 hr 07/04/20 07/04/20 07/04/20 13:40 13:55 16:47 Temperature 36.4 C L 37.1 C Heart Rate 74 Heart Rate [ 102 H 86 Brachial] Respiratory 18 18 18 Rate Blood Pressure 103/58 L [Left Brachial artery] Blood Pressure 119/62 [Right Brachial artery] O2 Saturation 92 94 07/04/20 07/05/20 07/05/20 20:40 00:41 05:00 Temperature 36.6 C 36.9 C 36.6 C Heart Rate Heart Rate [ 65 75 58 L Brachial] Respiratory 18 16 Rate Blood Pressure 117/64 [Left Brachial artery] Blood Pressure 123/58 L 112/62 [Right Brachial artery] O2 Saturation 1 L 94 97 07/05/20 07:27 Temperature 37.1 C Heart Rate Heart Rate [ 54 L Brachial] Respiratory 15 Rate Blood Pressure [Left Brachial artery] Blood Pressure 112/60 [Right Brachial artery] O2 Saturation 93 Oxygen O2 Source Nasal cannula Oxygen Flow Rate 2 I&O (Last 24 Hrs): Intake and Output Totals x24h 07/03/20 07/04/20 07/05/20 23:59 23:59 23:59 Intake Total 935 3218.333 100 Output Total 1375 Balance 935 1843.333 100 General: Alert, Oriented x3, Mild distress HEENT: PERRLA, EOMI Neck: Supple, No JVD Neuro: Alert, Oriented Times 3 Cardiovascular: Regular rate, Normal S1, Normal S2 Respiratory: Other (Moderate amount of crackles heard in lungs bilaterally. Right greater than left.) Abdomen: Normal bowel sounds, Soft Extremities: No clubbing, No edema - Results Results: Laboratory Results WBC 10.2 x10^3/uL (4.8-10.8) 07/05/20 04:19 RBC 4.23 10^6/uL (4.70-6.10) L 07/05/20 04:19 Hgb 12.8 g/dL (14.0-18.0) L 07/05/20 04:19 Hct 39.8 % (42.0-52.0) L 07/05/20 04:19 MCV 94.1 fL (80.0-94.0) H 07/05/20 04:19 MCH 30.3 pg (27.0-31.0) 07/05/20 04:19 MCHC 32.2 g/dL (32.0-36.0) 07/05/20 04:19 RDW 11.7 % (12.0-15.0) L 07/05/20 04:19 Plt Count 294 10^3/uL (130-450) 07/05/20 04:19 MPV 10.3 fL (7.4-11.4) 07/05/20 04:19 Neut # (Auto) 7.5 10^3/uL (1.5-6.6) H 07/05/20 04:19 Lymph # (Auto) 1.8 10^3/uL (1.5-3.5) 07/05/20 04:19 [place] # (Auto) 0.8 10^3/uL (0.0-1.0) 07/05/20 04:19 Eos # (Auto) 0.0 10^3/uL (0.0-0.7) 07/05/20 04:19 Baso # (Auto) 0.0 10^3/uL (0.0-0.1) 07/05/20 04:19 Absolute Nucleated RBC 0.00 x10^3/uL 07/05/20 04:19 Total Counted 100 07/04/20 04:16 Band Neuts % (Manual) 1 % (0-10) 07/04/20 04:16 Abnorm Lymph % (Manual) 0 % 07/04/20 04:16 Nucleated RBC % 0.0 /100WBC 07/05/20 04:19 Neutrophils # (Manual) 3.2 10^3/uL (1.5-6.6) 07/04/20 04:16 Lymphocytes # (Manual) 1.0 10^3/uL (1.5-3.5) L 07/04/20 04:16 Monocytes # (Manual) 0.6 10^3/uL (0.0-1.0) 07/04/20 04:16 Eosinophils # (Manual) 0.0 10^3/uL (0-0.7) 07/04/20 04:16 Basophils # (Manual) 0.0 10^3/uL (0-0.1) 07/04/20 04:16 Differential Comment MANUAL DIFFERENTIAL 07/04/20 04:16 Manual Slide Review Indicated 07/03/20 12:30 WBC Morphology NORMAL APPEARANCE (NORMAL) 07/04/20 04:16 Platelet Estimate NORMAL (130-450,000) (NORMAL) 07/04/20 04:16 Platelet Morphology NORMAL APPEARANCE (NORMAL) 07/04/20 04:16 RBC Morph Micro Appear NORMAL APPEARANCE (NORMAL) 07/04/20 04:16 ESR 76 mm/Hr (0-20) H 07/03/20 14:30 D-Dimer > 1050.0 ng/mL (200.0-255.0) H 07/03/20 12:30 Sodium 140 mmol/L (135-145) 07/05/20 04:19 Potassium 5.1 mmol/L (3.5-5.0) H 07/05/20 04:19 Chloride 107 mmol/L (101-111) 07/05/20 04:19 Carbon Dioxide 21 mmol/L (21-32) 07/05/20 04:19 Anion Gap 12.0 (6-13) 07/05/20 04:19 BUN 22 mg/dL (6-20) H 07/05/20 04:19 Creatinine 1.0 mg/dL (0.6-1.2) 07/05/20 04:19 Estimated GFR (MDRD) 75 (>89) L 07/05/20 04:19 Glucose 145 mg/dL (70-100) H 07/05/20 04:19 POC Whole Bld Glucose 224 mg/dL (70 - 100) H 07/05/20 11:45 Estimat Average Glucose 169 mg/dL (70-100) H 07/04/20 04:16 Hemoglobin A1c % 7.5 % (4.27-6.07) H 07/04/20 04:16 Calcium 8.5 mg/dL (8.5-10.3) 07/05/20 04:19 Ferritin 410.0 ng/mL (23.9-336.2) H 07/03/20 12:30 Total Bilirubin 0.7 mg/dL (0.2-1.0) 07/03/20 12:30 AST 53 IU/L (10-42) H 07/03/20 12:30 ALT 58 IU/L (10-60) 07/03/20 12:30 Alkaline Phosphatase 81 IU/L (42-121) 07/03/20 12:30 C-Reactive Protein 5.8 mg/dL (0-1.0) H 07/05/20 04:19 Total Protein 7.5 g/dL (6.7-8.2) 07/03/20 12:30 Albumin 2.9 g/dL (3.2-5.5) L 07/03/20 12:30 Globulin 4.6 g/dL (2.1-4.2) H 07/03/20 12:30 Albumin/Globulin Ratio 0.6 (1.0-2.2) L 07/03/20 12:30 Nasal Adenovirus (PCR) NOT DETECTED 07/03/20 13:27 Nasal B. parapertussis DNA (PCR) NOT DETECTED 07/03/20 13:27 Nasal Coronavir 229E PCR NOT DETECTED 07/03/20 13:27 Nasal Coronavir HKU1 PCR NOT DETECTED 07/03/20 13:27 Nasal Coronavir NL63 PCR NOT DETECTED 07/03/20 13:27 Nasal Coronavir OC43 PCR NOT DETECTED 07/03/20 13:27 Nasal Enterovir/Rhinovir PCR NOT DETECTED 07/03/20 13:27 Nasal Influenza B PCR NOT DETECTED 07/03/20 13:27 Nasal Influenza A PCR NOT DETECTED 07/03/20 13:27 Nasal Parainfluen 1 PCR NOT DETECTED 07/03/20 13:27 Nasal Parainfluen 2 PCR NOT DETECTED 07/03/20 13:27 Nasal Parainfluen 3 PCR NOT DETECTED 07/03/20 13:27 Nasal Parainfluen 4 PCR NOT DETECTED 07/03/20 13:27 Nasal RSV (PCR) NOT DETECTED 07/03/20 13:27 Nasal B.pertussis DNA PCR NOT DETECTED 07/03/20 13:27 Nasal C.pneumoniae (PCR) NOT DETECTED 07/03/20 13:27 Feliberto Human Metapneumo PCR NOT DETECTED 07/03/20 13:27 Nasal M.pneumoniae (PCR) NOT DETECTED 07/03/20 13:27 Nasal SARS-CoV-2 (PCR) DETECTED A 07/03/20 13:27 Sepsis Event Note (H) - Evaluation Current Stage of Sepsis: Ruled out ABX Reporting Has patient been on IV antibiotics over the past 48 hours?: No
[2020-07-05] MEDS: guaiFENesin/CODEINE 5 ML UDC PO PRN ×2 (14:27→21:18)
[2020-07-05] MEDS ORDERED: INSULIN ASPART 300 UNIT/3 ML PEN SUBQ SCH ×2 (17:00)
[2020-07-05] MEDS: ATORVASTATIN 40 MG TABLET PO SCH (21:18)
[2020-07-05] MEDS: INSULIN GLARGINE 300 UNIT/3 ML PEN SUBQ SCH (21:19)
[2020-07-06] MEDS: SODIUM CHLORIDE FLUSH 0.9% 10 ML SYRINGE IVP SCH ×4 (01:21→22:20)
[2020-07-06] MEDS: BENZOCAINE/MENTHOL LOZENGE MM PRN ×2 (05:44→22:12)
[2020-07-06] MEDS: PANTOPRAZOLE 40 MG TABLET PO SCH (05:44)
[2020-07-06] MEDS: guaiFENesin/CODEINE 5 ML UDC PO PRN ×3 (05:44→22:12)
[2020-07-06] MEDS: PHENOL THROAT SPRAY 177 ML MM PRN (05:45)
[2020-07-06 06:03] LABS: BASOPHILS % (AUTO) 0.2 %; EOSINOPHILS % (AUTO) 0.4 %; HGB - HEMOGLOBIN 13.1 g/dL (14.0-18.0); LYMPHOCYTES # (AUTO) 2.5 10^3/uL (1.5-3.5); LYMPHOCYTES % (AUTO) 24.5 %; MEAN CORPUSCULAR HEMOGLOBIN 30.6 pg (27.0-31.0); MEAN CORPUSCULAR HGB CONC 33.5 g/dL (32.0-36.0); MEAN CORPUSCULAR VOLUME 91.4 fL (80.0-94.0); MEAN PLATELET VOLUME 9.8 fL (7.4-11.4); MONOCYTES # (AUTO) 0.9 10^3/uL (0.0-1.0); MONOCYTES % (AUTO) 8.8 %; NEUTROPHILS # (AUTO) 6.8 10^3/uL (1.5-6.6); NEUTROPHILS % (AUTO) 65.8 %; PLT - PLATELET COUNT 293 10^3/uL (130-450); RED BLOOD COUNT 4.28 10^6/uL (4.70-6.10); RED CELL DISTRIBUTION WIDTH 11.7 % (12.0-15.0); WHITE BLOOD COUNT 10.3 x10^3/uL (4.8-10.8)
[2020-07-06 06:21] LABS: CALCIUM 8.7 mg/dL (8.5-10.3); CREATININE 1.1 mg/dL (0.6-1.2); CRP - C-REACTIVE PROTEIN 4.9 mg/dL (0-1.0)
[2020-07-06] MEDS: INSULIN ASPART 300 UNIT/3 ML PEN SUBQ SCH ×4 (08:04→22:17)
[2020-07-06] MEDS: REMDESIVIR 100MG VIAL 100 MG in SODIUM CHLORIDE 0.9% 100ML 100 ML IV SCH (09:19)
[2020-07-06] MEDS: ENOXAPARIN 40 MG/0.4 ML SYRINGE SUBQ SCH (09:19)
[2020-07-06] MEDS: DEXAMETHASONE 10 MG/ML VIAL IVP SCH (09:20)
[2020-07-06] MEDS: lisinopriL 20 MG TABLET PO SCH (09:23)
--- NOTE | 2020-07-06 11:07 | PROVIDER PROGRESS NOTE ---
Assessment/Plan - Problem List (1) Pneumonia due to COVID-19 virus Assessment/Plan: Patient has a persistent dry cough but is maintaining his oxygenation on 1 L of oxygen via nasal cannula. We will continue remdesivir. Today is day 4 . Continue Decadron 6 mg IV daily Albuterol inhaler 2 puffs every 4 hours as needed. Lovenox 40 mg subcu every afternoon for DVT prophylaxis. (2) Hypoxia Assessment/Plan: Secondary to COVID-19 infection/pneumonia. Patient has a persistent dry cough but is maintaining his oxygenation above 94% on 1 L of oxygen via nasal cannula. We will continue remdesivir. Today is day 4 5. Continue Decadron 6 mg IV daily Albuterol inhaler 2 puffs every 4 hours as needed. (3) Diabetes Qualifiers: Diabetes mellitus type: type 2 Assessment/Plan: Carb controlled diet. Patient's Actos, Januvia and Metformin held. Continue Lantus 40 units subcu daily. Accu-Cheks before every meal and at bedtime. Sliding scale insulin. Hemoglobin A1c 7.5. (4) HLD (hyperlipidemia) Assessment/Plan: On atorvastatin 40 mg p.o. every afternoon. (5) HTN (hypertension) Assessment/Plan: Currently normotensive. On lisinopril 20 mg p.o. daily. - Current Meds Current Meds: Current Medications Generic Name Dose Route Start Last Admin Trade Name Freq PRN Reason Stop Dose Admin Albuterol 2 puffs 07/04/20 13:09 07/04/20 13:52 Albuterol 1 Puff INH 2 puffs Q4H PRN Administration Dyspnea Atorvastatin Calcium 40 mg 07/03/20 21:00 07/05/20 21:18 Atorvastatin 40 Mg Tablet PO 40 mg QPM CHRISTIE Administration Dexamethasone 6 mg 07/04/20 09:00 07/06/20 09:20 Dexamethasone 10 Mg/Ml Vial IVP 07/08/20 08:59 6 mg DAILY CHRISTIE Administration Enoxaparin Sodium 40 mg 07/04/20 09:00 07/06/20 09:19 Enoxaparin 40 Mg/0.4 Ml Syringe SUBQ 40 mg DAILY CHRISTIE Administration Guaifenesin/Codeine Phosphate 5 ml 07/05/20 13:21 07/06/20 05:44 Guaifenesin/Codeine 5 Ml Udc PO 5 ml Q6HR PRN Administration Cough Remdesivir 100 mg/ Sodium 100 mls @ 200 mls/hr 07/04/20 09:00 07/06/20 09:19 Chloride IV 07/07/20 09:29 250 mls/hr DAILY CHRISTIE Administration Insulin Aspart 2 - 10 unit 07/05/20 17:00 07/06/20 08:04 Insulin Aspart 300 Unit/3 Ml Pen SUBQ Not Given 0800,1200,1700,2100 [facility] Protocol Insulin Glargine 40 unit 07/04/20 21:00 07/05/20 21:19 Insulin Glargine 300 Unit/3 Ml Pen SUBQ 40 unit QPM CHRISTIE Administration Lisinopril 20 mg 07/05/20 09:00 07/06/20 09:23 Lisinopril 20 Mg Tablet PO 20 mg DAILY CHRISTIE Administration Pantoprazole Sodium 40 mg 07/04/20 07:00 07/06/20 05:44 Pantoprazole 40 Mg Tablet PO 40 mg QDAC CHRISTIE Administration Phenol/Menthol 2 sprays 07/04/20 09:40 07/06/20 05:45 Phenol Throat [place] 177 Ml MM 2 sprays Q2HR PRN Administration Throat Pain Sodium Chloride 10 ml 07/04/20 01:00 07/06/20 01:21 Sodium Chloride Flush 0.9% 10 Ml Syringe IVP 10 ml 0100,0900,1700 CHRISTIE Administration Throat Lozenges 1 lozenge 07/04/20 09:40 07/06/20 05:44 Benzocaine/Menthol Lozenge MM 1 lozenge Q2HR PRN Administration Throat pain - Lab Result Fish Bone Diagrams: 07/06/20 05:53 07/06/20 05:53 - Additional Planning My Orders: My Active Orders 07/05/20 13:21 guaiFENesin/CODEINE [Robitussin AC] 5 ml PO Q6HR PRN 07/05/20 17:00 Insulin Aspart [NovoLOG] 2 - 10 unit SUBQ 0800,1200,1700,2100 Subjective - Subjective Patient Reports: Other (Patient was seated at bedside chair today. He denied any significant discomfort except for the persistent dry cough. However it has decreased in intensity.) Objective Vital Signs: Vital Signs - 24 hr 07/05/20 07/05/20 07/05/20 12:01 16:47 20:55 Temperature 36.3 C L 36.8 C Heart Rate 70 Heart Rate [ 139 H 62 Brachial] Respiratory 18 20 18 Rate Blood Pressure 115/62 [Left Brachial artery] Blood Pressure 127/70 [Right Brachial artery] O2 Saturation 95 97 07/05/20 07/06/20 07/06/20 21:00 01:00 05:45 Temperature 37.0 C 37.1 C 36.7 C Heart Rate Heart Rate [ 75 59 L 56 L Brachial] Respiratory 20 18 18 Rate Blood Pressure [Left Brachial artery] Blood Pressure 119/67 124/66 116/72 [Right Brachial artery] O2 Saturation 94 93 95 07/06/20 07:55 Temperature 36.6 C Heart Rate Heart Rate [ 54 L Brachial] Respiratory 18 Rate Blood Pressure [Left Brachial artery] Blood Pressure 119/67 [Right Brachial artery] O2 Saturation 96 Oxygen O2 Source Nasal cannula Oxygen Flow Rate 2 I&O (Last 24 Hrs): Intake and Output Totals x24h 07/04/20 07/05/20 07/06/20 23:59 23:59 23:59 Intake Total 3218.333 1416 720 Output Total 1375 650 Balance 2035.454 4546 70 General: Alert, Oriented x3, Cooperative, Mild distress HEENT: Atraumatic, PERRLA, EOMI Neck: Supple, No JVD Neuro: Alert, Non Focal, Oriented Times 3 Cardiovascular: Regular rate, Normal S1, Normal S2 Respiratory: Other (Moderate amount of crackles heard in lungs bilaterally. Right greater than left.) Abdomen: Normal bowel sounds, Soft Extremities: No clubbing, No edema - Results Results: Laboratory Results WBC 10.3 x10^3/uL (4.8-10.8) 07/06/20 05:53 RBC 4.28 10^6/uL (4.70-6.10) L 07/06/20 05:53 Hgb 13.1 g/dL (14.0-18.0) L 07/06/20 05:53 Hct 39.1 % (42.0-52.0) L 07/06/20 05:53 MCV 91.4 fL (80.0-94.0) 07/06/20 05:53 MCH 30.6 pg (27.0-31.0) 07/06/20 05:53 MCHC 33.5 g/dL (32.0-36.0) 07/06/20 05:53 RDW 11.7 % (12.0-15.0) L 07/06/20 05:53 Plt Count 293 10^3/uL (130-450) 07/06/20 05:53 MPV 9.8 fL (7.4-11.4) 07/06/20 05:53 Neut # (Auto) 6.8 10^3/uL (1.5-6.6) H 07/06/20 05:53 Lymph # (Auto) 2.5 10^3/uL (1.5-3.5) 07/06/20 05:53 [place] # (Auto) 0.9 10^3/uL (0.0-1.0) 07/06/20 05:53 Eos # (Auto) 0.0 10^3/uL (0.0-0.7) 07/06/20 05:53 Baso # (Auto) 0.0 10^3/uL (0.0-0.1) 07/06/20 05:53 Absolute Nucleated RBC 0.00 x10^3/uL 07/06/20 05:53 Total Counted 100 07/04/20 04:16 Band Neuts % (Manual) 1 % (0-10) 07/04/20 04:16 Abnorm Lymph % (Manual) 0 % 07/04/20 04:16 Nucleated RBC % 0.0 /100WBC 07/06/20 05:53 Neutrophils # (Manual) 3.2 10^3/uL (1.5-6.6) 07/04/20 04:16 Lymphocytes # (Manual) 1.0 10^3/uL (1.5-3.5) L 07/04/20 04:16 Monocytes # (Manual) 0.6 10^3/uL (0.0-1.0) 07/04/20 04:16 Eosinophils # (Manual) 0.0 10^3/uL (0-0.7) 07/04/20 04:16 Basophils # (Manual) 0.0 10^3/uL (0-0.1) 07/04/20 04:16 Differential Comment MANUAL DIFFERENTIAL 07/04/20 04:16 Manual Slide Review Indicated 07/03/20 12:30 WBC Morphology NORMAL APPEARANCE (NORMAL) 07/04/20 04:16 Platelet Estimate NORMAL (130-450,000) (NORMAL) 07/04/20 04:16 Platelet Morphology NORMAL APPEARANCE (NORMAL) 07/04/20 04:16 RBC Morph Micro Appear NORMAL APPEARANCE (NORMAL) 07/04/20 04:16 ESR 76 mm/Hr (0-20) H 07/03/20 14:30 D-Dimer > 1050.0 ng/mL (200.0-255.0) H 07/03/20 12:30 Sodium 138 mmol/L (135-145) 07/06/20 05:53 Potassium 3.9 mmol/L (3.5-5.0) 07/06/20 05:53 Chloride 103 mmol/L (101-111) 07/06/20 05:53 Carbon Dioxide 24 mmol/L (21-32) 07/06/20 05:53 Anion Gap 11.0 (6-13) 07/06/20 05:53 BUN 20 mg/dL (6-20) 07/06/20 05:53 Creatinine 1.1 mg/dL (0.6-1.2) 07/06/20 05:53 Estimated GFR (MDRD) 67 (>89) L 07/06/20 05:53 Glucose 143 mg/dL (70-100) H 07/06/20 05:53 POC Whole Bld Glucose 111 mg/dL (70 - 100) H 07/06/20 07:59 Estimat Average Glucose 169 mg/dL (70-100) H 07/04/20 04:16 Hemoglobin A1c % 7.5 % (4.27-6.07) H 07/04/20 04:16 Calcium 8.7 mg/dL (8.5-10.3) 07/06/20 05:53 Ferritin 410.0 ng/mL (23.9-336.2) H 07/03/20 12:30 Total Bilirubin 0.7 mg/dL (0.2-1.0) 07/03/20 12:30 AST 53 IU/L (10-42) H 07/03/20 12:30 ALT 58 IU/L (10-60) 07/03/20 12:30 Alkaline Phosphatase 81 IU/L (42-121) 07/03/20 12:30 C-Reactive Protein 4.9 mg/dL (0-1.0) H 07/06/20 05:53 Total Protein 7.5 g/dL (6.7-8.2) 07/03/20 12:30 Albumin 2.9 g/dL (3.2-5.5) L 07/03/20 12:30 Globulin 4.6 g/dL (2.1-4.2) H 07/03/20 12:30 Albumin/Globulin Ratio 0.6 (1.0-2.2) L 07/03/20 12:30 Nasal Adenovirus (PCR) NOT DETECTED 07/03/20 13:27 Nasal B. parapertussis DNA (PCR) NOT DETECTED 07/03/20 13:27 Nasal Coronavir 229E PCR NOT DETECTED 07/03/20 13:27 Nasal Coronavir HKU1 PCR NOT DETECTED 07/03/20 13:27 Nasal Coronavir NL63 PCR NOT DETECTED 07/03/20 13:27 Nasal Coronavir OC43 PCR NOT DETECTED 07/03/20 13:27 Nasal Enterovir/Rhinovir PCR NOT DETECTED 07/03/20 13:27 Nasal Influenza B PCR NOT DETECTED 07/03/20 13:27 Nasal Influenza A PCR NOT DETECTED 07/03/20 13:27 Nasal Parainfluen 1 PCR NOT DETECTED 07/03/20 13:27 Nasal Parainfluen 2 PCR NOT DETECTED 07/03/20 13:27 Nasal Parainfluen 3 PCR NOT DETECTED 07/03/20 13:27 Nasal Parainfluen 4 PCR NOT DETECTED 07/03/20 13:27 Nasal RSV (PCR) NOT DETECTED 07/03/20 13:27 Nasal B.pertussis DNA PCR NOT DETECTED 07/03/20 13:27 Nasal C.pneumoniae (PCR) NOT DETECTED 07/03/20 13:27 Feliberto Human Metapneumo PCR NOT DETECTED 07/03/20 13:27 Nasal M.pneumoniae (PCR) NOT DETECTED 07/03/20 13:27 Nasal SARS-CoV-2 (PCR) DETECTED A 07/03/20 13:27 Sepsis Event Note (H) - Evaluation Current Stage of Sepsis: Ruled out ABX Reporting Has patient been on IV antibiotics over the past 48 hours?: No
[2020-07-06] MEDS: ATORVASTATIN 40 MG TABLET PO SCH (22:12)
[2020-07-06] MEDS: INSULIN GLARGINE 300 UNIT/3 ML PEN SUBQ SCH (22:18)
[2020-07-07] MEDS: BENZOCAINE/MENTHOL LOZENGE MM PRN ×4 (05:50→21:17)
[2020-07-07] MEDS: PANTOPRAZOLE 40 MG TABLET PO SCH (05:50)
[2020-07-07 06:07] LABS: BASOPHILS % (AUTO) 0.1 %; EOSINOPHILS % (AUTO) 0.9 %; HGB - HEMOGLOBIN 13.5 g/dL (14.0-18.0); MEAN CORPUSCULAR HGB CONC 34.5 g/dL (32.0-36.0); MEAN CORPUSCULAR VOLUME 89.9 fL (80.0-94.0); MEAN PLATELET VOLUME 10.5 fL (7.4-11.4); MONOCYTES % (AUTO) 10.9 %; NEUTROPHILS % (AUTO) 53.6 %; PLT - PLATELET COUNT 329 10^3/uL (130-450); RED BLOOD COUNT 4.35 10^6/uL (4.70-6.10); RED CELL DISTRIBUTION WIDTH 11.6 % (12.0-15.0); WHITE BLOOD COUNT 8.7 x10^3/uL (4.8-10.8)
[2020-07-07 06:20] LABS: CALCIUM 8.4 mg/dL (8.5-10.3); CREATININE 1.1 mg/dL (0.6-1.2); CRP - C-REACTIVE PROTEIN 1.9 mg/dL (0-1.0)
[2020-07-07 06:23] LABS: ABNORMAL LYMPHS % (MANUAL) 1 %; BAND NEUTROPHILS % (MANUAL) 1 %; EOSINOPHILS # (MANUAL) 0.1 10^3/uL (0-0.7); LYMPHOCYTES # (MANUAL) 2.2 10^3/uL (1.5-3.5); LYMPHOCYTES % (MANUAL) 24 %; MONOCYTES # (MANUAL) 0.9 10^3/uL (0.0-1.0); PLATELET ESTIMATE, MANUAL NORMAL (130-450,000) (NORMAL); PLATELET MORPHOLOGY NORMAL APPEARANCE (NORMAL); RBC MORPHOLOGY (MULTIPLE) NORMAL APPEARANCE (NORMAL)
[2020-07-07 06:24] LABS: DIFFERENTIAL COMMENT MANUAL DIFFERENTIAL
[2020-07-07] MEDS: INSULIN ASPART 300 UNIT/3 ML PEN SUBQ SCH ×4 (08:24→21:17)
[2020-07-07] MEDS: guaiFENesin/CODEINE 5 ML UDC PO PRN (10:59)
[2020-07-07] MEDS: lisinopriL 20 MG TABLET PO SCH (10:59)
[2020-07-07] MEDS: DEXAMETHASONE 10 MG/ML VIAL IVP SCH (10:59)
[2020-07-07] MEDS: ENOXAPARIN 40 MG/0.4 ML SYRINGE SUBQ SCH (10:59)
[2020-07-07] MEDS: REMDESIVIR 100MG VIAL 100 MG in SODIUM CHLORIDE 0.9% 100ML 100 ML IV SCH (11:00)
[2020-07-07] MEDS: SODIUM CHLORIDE FLUSH 0.9% 10 ML SYRINGE IVP SCH ×2 (11:15→17:26)
--- NOTE | 2020-07-07 12:12 | PROVIDER PROGRESS NOTE ---
Assessment/Plan - Problem List (1) Pneumonia due to COVID-19 virus Assessment/Plan: 07/07 Patient reported he feels much better, he ate 80% of his breakfast, he denies fever, shortness of breathing. he report he still have some dry cough but is better than before. Patient had a 93% sats on room air. Respiratory rate is 18. CRP is trend down significantly. We will continue supplemental oxygen as needed. Since Patient clinically has significantly improved, patient's COVID-19 treatment of remdesivir and Decadron are hold now. Continue Lovenox (2) Hypoxia Improved, Patient had a 93% sats on room air. Respiratory rate is 18, Patient has no acute respiratory distress. (3) Diabetes Continue sliding scale, because patient is on steroid in hospital so increases insulin dosage. Hemoglobin A1c 7.5. (4) HLD (hyperlipidemia) Assessment/Plan: On atorvastatin 40 mg p.o. every afternoon. (5) HTN (hypertension) Assessment/Plan: Currently normotensive. On lisinopril 20 mg p.o. daily. (3) Diabetes Qualifiers: Diabetes mellitus type: type 2 - Current Meds Current Meds: Current Medications Generic Name Dose Route Start Last Admin Trade Name Freq PRN Reason Stop Dose Admin Albuterol 2 puffs 07/04/20 13:09 07/04/20 13:52 Albuterol 1 Puff INH 2 puffs Q4H PRN Administration Dyspnea Atorvastatin Calcium 40 mg 07/03/20 21:00 07/06/20 22:12 Atorvastatin 40 Mg Tablet PO 40 mg QPM CHRISTIE Administration Dexamethasone 6 mg 07/04/20 09:00 07/07/20 10:59 Dexamethasone 10 Mg/Ml Vial IVP 07/08/20 08:59 6 mg DAILY CHRISTIE Administration Enoxaparin Sodium 40 mg 07/04/20 09:00 07/07/20 10:59 Enoxaparin 40 Mg/0.4 Ml Syringe SUBQ 40 mg DAILY CHRISTIE Administration Guaifenesin/Codeine Phosphate 5 ml 07/05/20 13:21 07/07/20 10:59 Guaifenesin/Codeine 5 Ml Udc PO 5 ml Q6HR PRN Administration Cough Insulin Aspart 2 - 10 unit 07/05/20 17:00 07/07/20 11:59 Insulin Aspart 300 Unit/3 Ml Pen SUBQ 4 unit 0800,1200,1700,2100 CHRISTIE Administration Protocol Insulin Glargine 40 unit 07/04/20 21:00 07/06/20 22:18 Insulin Glargine 300 Unit/3 Ml Pen SUBQ 40 unit QPM CHRISTIE Administration Lisinopril 20 mg 07/05/20 09:00 07/07/20 10:59 Lisinopril 20 Mg Tablet PO 20 mg DAILY CHRISTIE Administration Pantoprazole Sodium 40 mg 07/04/20 07:00 07/07/20 05:50 Pantoprazole 40 Mg Tablet PO 40 mg QDAC CHRISTIE Administration Phenol/Menthol 2 sprays 07/04/20 09:40 07/06/20 05:45 Phenol Throat [place] 177 Ml MM 2 sprays Q2HR PRN Administration Throat Pain Sodium Chloride 10 ml 07/04/20 01:00 07/07/20 11:15 Sodium Chloride Flush 0.9% 10 Ml Syringe IVP Not Given 0100,0900,1700 CHRISTIE Throat Lozenges 1 lozenge 07/04/20 09:40 07/07/20 10:59 Benzocaine/Menthol Lozenge MM 1 lozenge Q2HR PRN Administration Throat pain - Lab Result Fish Bone Diagrams: 07/07/20 05:41 07/07/20 05:41 - Additional Planning My Orders: My Active Orders 07/08/20 05:00 BMP - BASIC METABOLIC PANEL [CHEM] DAILYLAB CBC - COMP BLD CT W/AUTO DIFF [HEME] DAILYLAB CRP - C-REACTIVE PROTEIN [CHEM] DAILYLAB Subjective - Subjective Patient Reports: Feeling Better Nursing Reports: No Complaints Objective Vital Signs: Vital Signs - 24 hr 07/06/20 07/06/20 07/06/20 16:05 17:00 21:00 Temperature 36.7 C 36.9 C 37.0 C Heart Rate 84 Heart Rate [ 72 62 Brachial] Respiratory 18 20 18 Rate Blood Pressure 141/74 H 131/74 H [Right Brachial artery] O2 Saturation 96 97 98 07/07/20 07/07/20 07/07/20 01:00 05:48 07:55 Temperature 36.7 C 36.7 C 37.0 C Heart Rate Heart Rate [ 70 74 66 Brachial] Respiratory 18 18 16 Rate Blood Pressure 117/73 119/75 122/72 [Right Brachial artery] O2 Saturation 96 94 97 07/07/20 07/07/20 11:00 11:50 Temperature 37.1 C Heart Rate Heart Rate [ 77 Brachial] Respiratory 18 Rate Blood Pressure 116/71 [Right Brachial artery] O2 Saturation 93 93 Oxygen O2 Source Room air Oxygen Flow Rate 2 I&O (Last 24 Hrs): Intake and Output Totals x24h 07/05/20 07/06/20 07/07/20 23:59 23:59 23:59 Intake Total 1416 820 340 Output Total 650 Balance 1416 170 340 General: Alert, Oriented x3, Cooperative, No acute distress HEENT: Atraumatic, PERRLA Neck: Supple Lymphatic: no adenopathy Neuro: Alert, Non Focal, Oriented Times 3 Cardiovascular: Regular rate, Normal S1, Normal S2 Respiratory: Chest non-tender, No respiratory distress, Breath sounds nml Abdomen: Normal bowel sounds, Soft, No tenderness Extremities: Normal pulses Skin: No breakdown - Results Results: Laboratory Results WBC 8.7 x10^3/uL (4.8-10.8) 07/07/20 05:41 RBC 4.35 10^6/uL (4.70-6.10) L 07/07/20 05:41 Hgb 13.5 g/dL (14.0-18.0) L 07/07/20 05:41 Hct 39.1 % (42.0-52.0) L 07/07/20 05:41 MCV 89.9 fL (80.0-94.0) 07/07/20 05:41 MCH 31.0 pg (27.0-31.0) 07/07/20 05:41 MCHC 34.5 g/dL (32.0-36.0) 07/07/20 05:41 RDW 11.6 % (12.0-15.0) L 07/07/20 05:41 Plt Count 329 10^3/uL (130-450) 07/07/20 05:41 MPV 10.5 fL (7.4-11.4) 07/07/20 05:41 Neut # (Auto) Not Reportable 07/07/20 05:41 Lymph # (Auto) Not Reportable 07/07/20 05:41 [place] # (Auto) Not Reportable 07/07/20 05:41 Eos # (Auto) Not Reportable 07/07/20 05:41 Baso # (Auto) Not Reportable 07/07/20 05:41 Absolute Nucleated RBC Not Reportable 07/07/20 05:41 Total Counted 100 07/07/20 05:41 Band Neuts % (Manual) 1 % (0-10) 07/07/20 05:41 Abnorm Lymph % (Manual) 1 % 07/07/20 05:41 Nucleated RBC % Not Reportable 07/07/20 05:41 Neutrophils # (Manual) 5.6 10^3/uL (1.5-6.6) 07/07/20 05:41 Lymphocytes # (Manual) 2.2 10^3/uL (1.5-3.5) 07/07/20 05:41 Monocytes # (Manual) 0.9 10^3/uL (0.0-1.0) 07/07/20 05:41 Eosinophils # (Manual) 0.1 10^3/uL (0-0.7) 07/07/20 05:41 Basophils # (Manual) 0.0 10^3/uL (0-0.1) 07/07/20 05:41 Differential Comment MANUAL DIFFERENTIAL 07/07/20 05:41 Manual Slide Review Indicated 07/03/20 12:30 WBC Morphology NORMAL APPEARANCE (NORMAL) 07/07/20 05:41 Platelet Estimate NORMAL (130-450,000) (NORMAL) 07/07/20 05:41 Platelet Morphology NORMAL APPEARANCE (NORMAL) 07/07/20 05:41 RBC Morph Micro Appear NORMAL APPEARANCE (NORMAL) 07/07/20 05:41 ESR 76 mm/Hr (0-20) H 07/03/20 14:30 D-Dimer > 1050.0 ng/mL (200.0-255.0) H 07/03/20 12:30 Sodium 133 mmol/L (135-145) L 07/07/20 05:41 Potassium 3.7 mmol/L (3.5-5.0) 07/07/20 05:41 Chloride 99 mmol/L (101-111) L 07/07/20 05:41 Carbon Dioxide 27 mmol/L (21-32) 07/07/20 05:41 Anion Gap 7.0 (6-13) 07/07/20 05:41 BUN 19 mg/dL (6-20) 07/07/20 05:41 Creatinine 1.1 mg/dL (0.6-1.2) 07/07/20 05:41 Estimated GFR (MDRD) 67 (>89) L 07/07/20 05:41 Glucose 188 mg/dL (70-100) H 07/07/20 05:41 POC Whole Bld Glucose 191 mg/dL (70 - 100) H 07/07/20 11:52 Estimat Average Glucose 169 mg/dL (70-100) H 07/04/20 04:16 Hemoglobin A1c % 7.5 % (4.27-6.07) H 07/04/20 04:16 Calcium 8.4 mg/dL (8.5-10.3) L 07/07/20 05:41 Ferritin 410.0 ng/mL (23.9-336.2) H 07/03/20 12:30 Total Bilirubin 0.7 mg/dL (0.2-1.0) 07/03/20 12:30 AST 53 IU/L (10-42) H 07/03/20 12:30 ALT 58 IU/L (10-60) 07/03/20 12:30 Alkaline Phosphatase 81 IU/L (42-121) 07/03/20 12:30 C-Reactive Protein 1.9 mg/dL (0-1.0) H 07/07/20 05:41 Total Protein 7.5 g/dL (6.7-8.2) 07/03/20 12:30 Albumin 2.9 g/dL (3.2-5.5) L 07/03/20 12:30 Globulin 4.6 g/dL (2.1-4.2) H 07/03/20 12:30 Albumin/Globulin Ratio 0.6 (1.0-2.2) L 07/03/20 12:30 Nasal Adenovirus (PCR) NOT DETECTED 07/03/20 13:27 Nasal B. parapertussis DNA (PCR) NOT DETECTED 07/03/20 13:27 Nasal Coronavir 229E PCR NOT DETECTED 07/03/20 13:27 Nasal Coronavir HKU1 PCR NOT DETECTED 07/03/20 13:27 Nasal Coronavir NL63 PCR NOT DETECTED 07/03/20 13:27 Nasal Coronavir OC43 PCR NOT DETECTED 07/03/20 13:27 Nasal Enterovir/Rhinovir PCR NOT DETECTED 07/03/20 13:27 Nasal Influenza B PCR NOT DETECTED 07/03/20 13:27 Nasal Influenza A PCR NOT DETECTED 07/03/20 13:27 Nasal Parainfluen 1 PCR NOT DETECTED 07/03/20 13:27 Nasal Parainfluen 2 PCR NOT DETECTED 07/03/20 13:27 Nasal Parainfluen 3 PCR NOT DETECTED 07/03/20 13:27 Nasal Parainfluen 4 PCR NOT DETECTED 07/03/20 13:27 Nasal RSV (PCR) NOT DETECTED 07/03/20 13:27 Nasal B.pertussis DNA PCR NOT DETECTED 07/03/20 13:27 Nasal C.pneumoniae (PCR) NOT DETECTED 07/03/20 13:27 Feliberto Human Metapneumo PCR NOT DETECTED 07/03/20 13:27 Nasal M.pneumoniae (PCR) NOT DETECTED 07/03/20 13:27 Nasal SARS-CoV-2 (PCR) DETECTED A 07/03/20 13:27 Sepsis Event Note (H) - Evaluation Current Stage of Sepsis: Ruled out ABX Reporting Has patient been on IV antibiotics over the past 48 hours?: No Current Medications - Current Medications Current Medications: Active Medications Acetaminophen (Acetaminophen 325 Mg Tablet) 650 mg PO Q4HR PRN PRN Reason: Pain 1 to 4 Albuterol (Albuterol 1 Puff) 2 puffs INH Q4H PRN PRN Reason: Dyspnea Last Admin: 07/04/20 13:52 Dose: 2 puffs Documented by: Atorvastatin Calcium (Atorvastatin 40 Mg Tablet) 40 mg PO QPM [facility] Last Admin: 07/06/20 22:12 Dose: 40 mg Documented by: Dexamethasone (Dexamethasone 10 Mg/Ml Vial) 6 mg IVP DAILY [facility] Stop: 07/08/20 08:59 Last Admin: 07/07/20 10:59 Dose: 6 mg Documented by: Enoxaparin Sodium (Enoxaparin 40 Mg/0.4 Ml Syringe) 40 mg SUBQ DAILY [facility] Last Admin: 07/07/20 10:59 Dose: 40 mg Documented by: Guaifenesin/Codeine Phosphate (Guaifenesin/Codeine 5 Ml Udc) 5 ml PO Q6HR PRN PRN Reason: Cough Last Admin: 07/07/20 10:59 Dose: 5 ml Documented by: Insulin Aspart (Insulin Aspart 300 Unit/3 Ml Pen) 2 - 10 unit SUBQ 0800,1200,1700,2100 [facility]; Protocol Last Admin: 07/07/20 11:59 Dose: 4 unit Documented by: Insulin Glargine (Insulin Glargine 300 Unit/3 Ml Pen) 40 unit SUBQ QPM [facility] Last Admin: 07/06/20 22:18 Dose: 40 unit Documented by: Lisinopril (Lisinopril 20 Mg Tablet) 20 mg PO DAILY [facility] Last Admin: 07/07/20 10:59 Dose: 20 mg Documented by: Ondansetron HCl (Ondansetron 4 Mg/2 Ml Vial) 4 mg IVP Q6HR PRN PRN Reason: Nausea / Vomiting Pantoprazole Sodium (Pantoprazole 40 Mg Tablet) 40 mg PO QDAC [facility] Last Admin: 07/07/20 05:50 Dose: 40 mg Documented by: Phenol/Menthol (Phenol Throat [place] 177 Ml) 2 sprays MM Q2HR PRN PRN Reason: Throat Pain Last Admin: 07/06/20 05:45 Dose: 2 sprays Documented by: Sodium Chloride (Sodium Chloride Flush 0.9% 10 Ml Syringe) 10 ml IVP PRN PRN PRN Reason: NEEDED PER PROVIDER ORDERS Sodium Chloride (Sodium Chloride Flush 0.9% 10 Ml Syringe) 10 ml IVP 0100,0900,1700 [facility] Last Admin: 07/07/20 11:15 Dose: Not Given Documented by: Throat Lozenges (Benzocaine/Menthol Lozenge) 1 lozenge MM Q2HR PRN PRN Reason: Throat pain Last Admin: 07/07/20 10:59 Dose: 1 lozenge Documented by: Atorvastatin [Lipitor] 40 mg PO DAILY 07/03/20 Insulin Glargine [Lantus Solostar] 40 units SQ DAILY 07/03/20 Lisinopril [Zestril] 20 mg PO DAILY 07/03/20 Pioglitazone HCl [Actos] 30 mg PO DAILY 07/03/20 SITagliptin [Januvia] 100 mg PO DAILY 07/03/20 metFORMIN [Glucophage] 850 mg PO BID 07/03/20
[2020-07-07] MEDS: ATORVASTATIN 40 MG TABLET PO SCH (21:16)
[2020-07-07] MEDS: INSULIN GLARGINE 300 UNIT/3 ML PEN SUBQ SCH (21:17)
[2020-07-08] MEDS: SODIUM CHLORIDE FLUSH 0.9% 10 ML SYRINGE IVP SCH ×2 (00:27→08:07)
[2020-07-08 05:32] LABS: BASOPHILS % (AUTO) 0.1 %; EOSINOPHILS % (AUTO) 0.8 %; HGB - HEMOGLOBIN 13.4 g/dL (14.0-18.0); LYMPHOCYTES % (AUTO) 31.8 %; MEAN CORPUSCULAR HEMOGLOBIN 30.5 pg (27.0-31.0); MEAN CORPUSCULAR HGB CONC 33.3 g/dL (32.0-36.0); MEAN CORPUSCULAR VOLUME 91.4 fL (80.0-94.0); MEAN PLATELET VOLUME 10.9 fL (7.4-11.4); NEUTROPHILS % (AUTO) 57.6 %; PLT - PLATELET COUNT 346 10^3/uL (130-450); RED CELL DISTRIBUTION WIDTH 11.7 % (12.0-15.0); WHITE BLOOD COUNT 8.6 x10^3/uL (4.8-10.8)
[2020-07-08 05:50] LABS: ABNORMAL LYMPHS % (MANUAL) 0 %
[2020-07-08 05:52] LABS: CALCIUM 8.3 mg/dL (8.5-10.3); CRP - C-REACTIVE PROTEIN 1.3 mg/dL (0-1.0)
[2020-07-08 06:17] LABS: BAND NEUTROPHILS % (MANUAL) 1 %; DIFFERENTIAL COMMENT MANUAL DIFFERENTIAL; EOSINOPHILS # (MANUAL) 0.1 10^3/uL (0-0.7); LYMPHOCYTES # (MANUAL) 3.5 10^3/uL (1.5-3.5); LYMPHOCYTES % (MANUAL) 41 %; MONOCYTES # (MANUAL) 1.1 10^3/uL (0.0-1.0); PLATELET ESTIMATE, MANUAL NORMAL (130-450,000) (NORMAL); RBC MORPHOLOGY (MULTIPLE) NORMAL APPEARANCE (NORMAL)
[2020-07-08] MEDS: PANTOPRAZOLE 40 MG TABLET PO SCH (06:48)
[2020-07-08] MEDS ORDERED: INSULIN GLARGINE 300 UNIT/3 ML PEN SUBQ SCH (08:00)
[2020-07-08] MEDS: INSULIN ASPART 300 UNIT/3 ML PEN SUBQ SCH ×2 (08:01→11:53)
[2020-07-08] MEDS: lisinopriL 20 MG TABLET PO SCH (08:04)
[2020-07-08] MEDS: ENOXAPARIN 40 MG/0.4 ML SYRINGE SUBQ SCH (08:05)
[2020-07-08] MEDS: guaiFENesin/CODEINE 5 ML UDC PO PRN (08:10)
[2020-07-08] MEDS: BENZOCAINE/MENTHOL LOZENGE MM PRN (11:52)
--- NOTE | 2020-07-08 15:09 | Discharge Plan ---
Discharge Plan Problem Reviewed?: Yes Disposition: Home, Self Care Condition: Stable Prescriptions: guaiFENesin/CODEINE [Robitussin AC] 5 ml PO Q6HR PRN #20 udc PRN Reason: Cough Diet: Diabetic Activity Restrictions: Activity as Tolerated Shower Restrictions: No (fall precaution) Instruction Topics: Codeine Guaifenesin oral solution or syrup, COVID-19 [facility], COVID-19 [facility] Statement Health Concerns: Covid 19 infection Plan of Treatment: you are stable O2 sats on room air without shortness of breath on exertion, and you have no respiratory distress, you are Hemodynamic stable, you want to go to home, according to [facility] guideline, you may keep infection isolation for at least another 10 days. Should you have shortness of breath, respiratory distress, and breath difficulty, you may immediately present ER or call 911 for help. Care Goals: stabilization and improvement/resolve of your medical conditions Assessment: discussed the care plan with you, answered your questions, you understood and agreed. Additional Instructions or Follow Up instructions: You may followup with your PCP in two weeks, should your symptoms return or worsen, you may present ER or call 911 for help. No Smoking: If you smoke, Please STOP! Call for help.
--- NOTE | 2020-07-08 15:22 | DISCHARGE SUMMARY ---
Discharge Summary Admit Date: 07/03/20 Discharge Date: 07/08/20 Discharging Provider: Costa Lima Condition at Discharge: Stable Discharge Disposition: Home, Self Care Discharge Facility Name: home - DIAGNOSES Discharge Diagnoses with Status of Each Condition: (1) Pneumonia due to COVID-19 virus Patient has no any respiratory distress, patient has 96% sats on room air. Patient walked around the room and went to bathroom without respiratory distress or shortness of breath. pt felt very comfortable. pt want to d/c to home. I called pt on today 07/09/20, he is doing very good at home without complaints. pt was treated with Remdesivir, Dacadron, and Lovenox in the hospital. Patient was instructed for isolation precaution for COVID-19 in the home according to [facility] guideline. (2) Hypoxia resolved (3) Diabetes stable (4) HLD (hyperlipidemia) stable (5) HTN (hypertension) stable. Patient take lisinopril in the home but patient reported to have chronic cough, advise pt discuss with his PCP to see if his Lisinopril can be removed. - HPI History of Present Illness: Patient is a 65-year-old male With a past medical history significant for hypertension, hyperlipidemia, diabetes, who presents to the emergency department with a cough and shortness of breath. pt report he had several weeks for shortness of breath with cough. But now Pt had obviously increased shortness of breath with exertion. He was seen at the walk-in clinic today and stated that he was told to come ER for further evaluation. He states that they told him he possibly had Covid pneumonia. 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 PCR test did show positive for COVID-19. Patient's O2 saturation is fine when he is in the rest. He is hypoxic with exertion in bed, drops to 88% sats, and drops more down to 86% with ambulation. Patient present significantly dry cough. pt require supplemental oxygen now. Patient denying fever, chest pain. Pt was Given 6 mg of Decadron in the emergency department. Given above medical condition, medical team was consulted for admission. Discussed the care goal with the patient, patient request full - HOSPITAL COURSE Hospital Course: Patient was admitted for COVID-19 positive and hypoxia. Patient was treated with Remdesivir, Decadron, Lovenox for his COVID-19, and Supplemental oxygen as needed. After treated in the hospital, patient become respiratory stable, Has no respiratory distress over 48 hours, Patient has 96% sats on room air. Patient has no fever in hospital. After the patient was discharged on yesterday, I called patient in the home today to ask if patient have any complaint of respiratory distress, patient reported he is doing very well, no any complaints or respiratory distress. He stated "Stay in the home, did make difference, make me much comfortable." In the discharge pt, I did see patient walking around the room without any respiratory distress or dizziness, Or complaint. Patient was discharged at hemodynamically stable condition - ALLERGIES Allergies/Adverse Reactions: Allergies Allergy/AdvReac Type Severity Reaction Status Date / Time No Known Drug Allergies Allergy Verified 07/03/20 12:09 - MEDICATIONS Home Medications: Ambulatory Orders Medication Instructions Recorded Confirmed Atorvastatin [Lipitor] 40 mg PO DAILY 07/03/20 07/03/20 Insulin Glargine [Lantus Solostar] 40 units SQ DAILY 07/03/20 07/03/20 Lisinopril [Zestril] 20 mg PO DAILY 07/03/20 07/03/20 Pioglitazone HCl [Actos] 30 mg PO DAILY 07/03/20 07/03/20 SITagliptin [Januvia] 100 mg PO DAILY 07/03/20 07/03/20 metFORMIN [Glucophage] 850 mg PO BID 07/03/20 07/03/20 guaiFENesin/CODEINE [Robitussin AC] 5 ml PO Q6HR PRN #20 udc 07/08/20 - PHYSICAL EXAM AT DISCHARGE General Appearance: positive: No acute distress, Alert. negative: Lethargic Eyes Bilateral: positive: Normal inspection, PERRL, No lid inflammation ENT: positive: ENT inspection nml, No signs of dehydration. negative: Dry mucous membranes Neck: positive: Nml inspection, Trachea midline. negative: Thyromegaly, Tracheal deviation Respiratory: positive: Chest non-tender, No respiratory distress. negative: Wheezes, Rales, Rhonchi Cardiovascular: positive: Regular rate & rhythm, No murmur. negative: Tachycardia, Bradycardia, Systolic murmur, Diastolic murmur Peripheral Pulses: positive: 2+ Abdomen: positive: Non-tender, Nml bowel sounds, No distention. negative: Tenderness, Guarding, Rebound Back: positive: Nml inspection. negative: CVA tenderness (R), CVA tenderness (L) Skin: positive: Color nml, Warm, Dry. negative: Cyanosis, Diaphoresis, Pallor Extremities: positive: Non-tender, Full ROM, Nml appearance. negative: Calf tenderness Neurologic/Psychiatric: positive: Oriented x3, Motor nml, Sensation nml, Mood/affect nml. negative: Weakness, Sensory loss, Facial droop, Slurred/abnml speech, Depressed mood/affect - LABS Result Diagrams: 07/08/20 04:09 07/08/20 04:09 - SEPSIS Current Stage of Sepsis: Ruled out - FOLLOW UP Follow Up: you are stable O2 sats on room air without shortness of breath on exertion, and you have no respiratory distress, you are Hemodynamic stable, you want to go to home, according to [facility] guideline, you may keep infection isolation for at least another 10 days. Should you have shortness of breath, respiratory distress, and breath difficulty, you may immediately present ER or call 911 for help. You may followup with your PCP in two weeks, should your symptoms return or worsen, you may present ER or call 911 for help. - TIME SPENT Time Spent in Discharge (Minutes): 30
--- NOTE | 2020-07-08 15:51 | ADVANCE CARE PLANNING NOTE ---
Advance Care Planning - Planning Encounter Date: 07/08/20 Time: 15:50 Purpose: advanced care plan because of covid 19 infection Parties in Attendance: pt and me Decisional Capacity of the Patient: pt has full capacity to make his own decision - Diagnosis for Encounter (3) Diabetes Qualifiers: Diabetes mellitus type: type 2 - Encounter Subjective/Patient's Story: Patient reported he just moved from [place] to [facility] about 1 month ago After he retired. He report the reason he want to moved here because his daughter and family is here. He reported he had cough for couple weeks. He reported when he see walk-in clinic, he had chest x-ray which indicated he had virus pneumonia feature shown in chest x-ray. He was told to ER for further evaluation. In the ER his COVID-19 test was positive, He feels shortness breathing and oxygen saturation was reduced, He was required oxygen support. Discussed the care goal with the patient, patient understand this COVID-19 uncertain in its nature. He is still very enjoying his life and He wanted his CODE STATUS full code. Objective/Medical Story: Patient has history of diabetes, Now it has COVID-19 infection, although he understand he is one of high risk patient from infection of Covid 19, He request his CODE STATUS is full code. Goals of Care: stabilization of respiratory status, healing from covid 19 infection Plan: discharge from hospital after he was stabilization, monitor at home carefully, return to ER or call 911 for help if he feel worsening of his symptoms, continue isolation at home according to [place] Covid 19 guideline. Code Status: Attempt Resuscitation Time spent on advance care plannin
[2020-07-08 16:18] VITALS: BP 101/63
== END 2020-07-08 16:42 | disposition home or self-care (01) | DRG 177 ==
LOC: ED 11:58 → ICU 17:16 → MS2 19:04
PROVIDERS: ADMIT Nurse Practitioner Gerontology; ATTEND Nurse Practitioner Gerontology
DX: U07.1 COVID-19 (principal); J12.82 Pneumonia due to coronavirus disease 2019; R09.02 Hypoxemia; E11.9 Type 2 diabetes mellitus without complications; I10 Essential (primary) hypertension; E78.5 Hyperlipidemia, unspecified; Z95.5 Presence of coronary angioplasty implant and graft; Z20.828 Contact with and (suspected) exposure to other viral communicable diseases; Z79.4 Long term (current) use of insulin; Z79.899 Other long term (current) drug therapy
CPT/HCPCS: 36415; 80048; 80053; 82728; 83036; 85025; 85379; 85651; 86140; 87631; 94640; 96374; 99283; 99285; A9270; J1650; J1815; 0202U

== ENCOUNTER 2023-08-21 16:23 | Emergency (ER) | payer MEDICARE, OTHER ==
--- NOTE | 2023-08-21 16:45 | ED Physician Documentation ---
History of Present Illness - Stated complaint Stated Complaint: L CALF SWELLING - Chief complaint Chief Complaint: Ext Problem - Additonal information Additional information: 68-year-old male presents emergency department from urgent care for concerns of left calf pain. Patient recently finished radiation treatment for prostate cancer in May. He was playing capture the [employer] this weekend and thinks that he strained his left calf he originally presented to urgent care for a lump on the back of his calf that was causing him pain and tenderness but was sent to the emergency department for rule out DVT. He has no shortness of breath no chest pain PD PAST MEDICAL HISTORY - Past Medical History Past Medical History: Yes Cardiovascular: Hypertension, High cholesterol Endocrine/Autoimmune: Type 2 diabetes : Nocturia, Other Other Past Medical History: Prostate CA with completion of radiation, follow up due 09/2023 - Past Surgical History Past Surgical History: Yes Cardiovascular: Coronary stent HEENT: Cataracts - Present Medications Home Medications: Ambulatory Orders Medication Instructions Recorded Confirmed Atorvastatin [Lipitor] 80 mg PO DAILY 07/03/20 08/21/23 Insulin Glargine [Lantus Solostar] 44 units SQ DAILY 07/03/20 08/21/23 Lisinopril [Zestril] 20 mg PO DAILY 07/03/20 08/21/23 metFORMIN [Glucophage] 850 mg PO BID 07/03/20 08/21/23 Aspirin [Aspirin EC] 81 mg PO DAILY 01/26/23 08/21/23 Cinsulin 1 tab PO DAILY 01/26/23 08/21/23 Immune C 1 tab PO DAILY 01/26/23 08/21/23 Insulin Lispro [Humalog Kwikpen 8 unit SUBQ TIDWM 01/26/23 08/21/23 U-100] Magnesium 250 mg PO DAILY 01/26/23 08/21/23 Multivitamin 1 each PO DAILY 01/26/23 08/21/23 Tamsulosin [Flomax] 1 cap PO DAILY 08/21/23 08/21/23 - Allergies Allergies/Adverse Reactions: Allergies Allergy/AdvReac Type Severity Reaction Status Date / Time No Known Drug Allergies Allergy Verified 08/21/23 16:46 - Social History Does the pt smoke?: No Smoking Status: Never smoker Does the pt drink ETOH?: No Does the pt have substance abuse?: No - Immunizations Immunizations are current?: Yes - POLST Patient has POLST: No PD ED PE NORMAL - Vitals Vital signs reviewed: Yes - General General: Alert and oriented X 3, No acute distress, Well developed/nourished - Cardiac Cardiac: RRR, No murmur, No gallop, Strong equal pulses - Respiratory Respiratory: No respiratory distress, Clear bilaterally - Derm Derm: Other (mild erythema to the left calf about 8x8cm. intact blisters in shape of square from icepack) - Extremities Extremities: Other - Psych Psych: Normal mood - Free text exam Free text exam: Left lower quadrant. Tenderness with palpation to left calf. There is intact blisters in shape of a square to left calf. No tenderness to calf with flexion or extension of ankle. Full range of motion to left knee. Results - Vitals Vitals: Vital Signs - 24 hr 08/21/23 08/21/23 16:27 18:24 Temperature 36 C L Heart Rate 94 78 Respiratory 16 16 Rate Blood Pressure 125/78 132/82 H O2 Saturation 100 99 Oxygen O2 Source Room air - Rads (name of study) Left lower extremity ultrasound Relevant Findings:: Final report received, EMP independent interpretation of test, Other (No DVT, resolving soft tissue hematoma) PD Medical Decision Making - ED course ED course: 68-year-old male presents emergency department for left calf pain and tenderness. Venous duplex was complete and there is no DVT. There is a resolving soft tissue hematoma. Pt has small intact blisters to the left calf in shape of a square, . When I ask him what these blisters are from to his left calf he says that he believes is from an ice pack. He had left an ice pack on for over 18 hours to his left calf. Patient was placed in an Abhilash wrap to his left calf told to alternate 20 minutes ice 20 minutes heat to help with the pain and inflammation he is experiencing he does not have a DVT he is told to follow-up with primary care provider in about a week if there is no resolution of the pain. He was offered pain medications here in the emergency department because he is having a hard time ambulating on his foot but he said that he felt comfortable with what he has been doing and just wanted to be reassured that there was no DVT and has pain medication at home that he can use if needed. He has not been using any Tylenol or ibuprofen but said that he will start using this at home. Departure - Departure Disposition: 01 Home, Self Care Clinical Impression: Strain of left calf muscle Instructions: Exercise Lower Body Calf Stretch Comments: Thank you for trusting us with your care. I would recommend is doing an Abhilash wrap to your left calf to help with the pain and swelling that you are experiencing. We have placed an Abhilash wrap to your left calf to help with the pain and swelling. We have also given you Tylenol and ibuprofen to help with your pain and discomfort. If after 1 hour of taking the Tylenol ibuprofen your pain has not improved you can take one of your pain pills that you have at home. Periodically take the Abhilash wrap off once to twice a day to do some gentle range of motion exercises to your left calf and some gentle stretching. Please follow-up with your primary care provider to let them know about your ER visit and let them know that you are having left calf pain and that you were on ciprofloxacin in March 2023. Please have a low threshold to come back to the emergency department for starting develop any shortness of breath, chest pain, or worsening left calf pain. Wishing you a speedy recovery. Forms: PCP List Discharge Date/Time: 08/21/23 18:24
--- NOTE | 2023-08-21 18:06 | Ultrasound Report ---
PROCEDURE: Duplex Ext Veins Left INDICATIONS: left calf pain, r/o DVT TECHNIQUE: Real-time imaging, as well as color and pulse Doppler interrogation, were performed of th e lower extremity deep veins from the inguinal ligament to the popliteal fossa. Attempted visualizati on of the calf veins was performed. COMPARISON: None. FINDINGS: The deep veins are normally compressible, and free of intraluminal thrombus. Color and pu lse Doppler demonstrate normal phasic intraluminal flow. There is normal augmentation response to di stal compression maneuver. Sided pain in left calf, there is a mixed heterogenous fluid collection measuring 5.1 x 7.3 x 3.4 cm IMPRESSION: No deep venous thrombosis of the visualized lower extremity. Heterogenous resolving soft tissue hematoma Reviewed by: Maninder Coffey MD on 08/21/2023 5:05 PM [facility] Approved by: Maninder Coffey MD on 08/21/2023 5:05 PM [facility] Station ID: [id number]
[2023-08-21] MEDS: IBUPROFEN 600 MG TABLET PO STA (18:19)
[2023-08-21] MEDS: ACETAMINOPHEN 325 MG TABLET PO STA (18:19)
[2023-08-21 18:26] VITALS: BP 132/82; O2SAT 99
== END 2023-08-21 18:24 | disposition home or self-care (01) ==
LOC: ED 16:23
DX: S86.812A Strain of other muscle(s) and tendon(s) at lower leg level, left leg, initial encounter (principal); X58.XXXA Exposure to other specified factors, initial encounter; I10 Essential (primary) hypertension; E11.9 Type 2 diabetes mellitus without complications; Z79.4 Long term (current) use of insulin; Z79.84 Long term (current) use of oral hypoglycemic drugs
CPT/HCPCS: 93971; 99283; 99284; A9270